=== PATIENT | male | born 1955 | race African-American/Black ===

== ENCOUNTER 2017-09-04 12:58 | Inpatient (IN) | payer SELFPAY ==
[2017-09-04] VITALS (9 sets, daily range): BP systolic 79–112; BP diastolic 50–72; PULSE 66–74; RESP 10–22; TEMP 96.1–98.5; O2SAT 95–97
[~2017-09-04] VITALS: Ht 180.3 cm; Wt 61.0 kg
[~2017-09-04 12:58] MED LIST: DICY1TAB26 PO; ECOT81TA2 PO; LISI20 PO; PROT40TA PO; ZYPR20TA PO
[2017-09-04] MEDS ORDERED: SODIUM CHLOR 0.9% 1000 ML INJ 1,000 ML IV SCH (13:22)
[2017-09-04] MEDS ORDERED: SODIUM CHLORIDE 0.9% FLUSH 10 ML FLUSH IVF PRN ×2 (13:30→14:15)
[2017-09-04] MEDS ORDERED: MIRT30TA PO (13:48)
[2017-09-04] MEDS ORDERED: OLAN20TA PO (13:48)
[2017-09-04] MEDS ORDERED: ATEN25TA PO (13:48)
[2017-09-04] MEDS ORDERED: NAPR500T PO (13:48)
[2017-09-04] MEDS ORDERED: BUSP10TA PO (13:48)
[2017-09-04] MEDS ORDERED: DIVA500T PO (13:48)
[2017-09-04] MEDS ORDERED: ASPI81CH CHEW (13:48)
[2017-09-04] MEDS ORDERED: LISI40TA PO (13:48)
[2017-09-04] MEDS ORDERED: HYDR50CA PO (13:48)
--- NOTE | 2017-09-04 13:59 | PD ---
HPI Chief Complaint: GI Complaint Time Seen by Provider: 13:22 Travel History International Travel<30 days: No Contact w/Intl Traveler<30days: No Traveled to known affect area: No History of Present Illness HPI This is a 61-year-old gentleman with a history of pancreatitis, who presents today with complaints of nausea vomiting and weakness. Patient was noted to have a blood pressure of systolic 70s in the triage area. The patient reports epigastric pain. He reports black fluid in his vomit as well as black tarry stools. He denies any fevers, chills. He denies any previous history of GI bleed. PFSH Past Medical History Bipolar Disorder: Yes Anxiety: Yes Depression: Yes Heart Rhythm Problems: Yes Cancer: Yes (Pt family states he may have prostate cancer but are unsure due to refusal) Cardiovascular Problems: Yes High Cholesterol: Yes Chest Pain: Yes Cerebrovascular Accident: Yes Diabetes: No Diminished Hearing: No Endocrine: No Gastrointestinal Disorders: No Genitourinary: No Headaches: No Hypertension: Yes Immune Disorder: No Musculoskeletal: Yes Neurologic: Yes Psychiatric: Yes (Extensive history of inpatient and outpatient psychiatric care) Reproductive: No Respiratory: Yes Immunizations Current: No Migraines: No Schizophrenia: Yes Seizures: No Thyroid Disease: No Influenza Vaccination: No Past Surgical History Surgical History: No Previous Surgery Social History Alcohol Use: No Tobacco Use: Yes (1) Substance Use: No (pt states no but smells of marijuana) Allergies-Medications (Allergen,Severity, Reaction): Coded Allergies: No Known Allergies (Verified , 09/04/17) Reported Meds & Prescriptions Reported Meds & Active Scripts Active Reported Mirtazapine 30 Mg Tab 30 Mg PO HS Olanzapine 20 Mg Tab 20 Mg PO HS Hydroxyzine Pamoate 50 Mg Cap 50 Mg PO TID Buspirone (Buspirone HCl) 10 Mg Tab 10 Mg PO TID Divalproex DR (Divalproex Sodium) 500 Mg Tabdr 500 Mg PO BID Naproxen 500 Mg Tab 500 Mg PO BID Lisinopril 40 Mg Tab 40 Mg PO DAILY Atenolol 25 Mg Tab 25 Mg PO DAILY Aspirin 81 Mg Chew 81 Mg CHEW DAILY Review of Systems Except as stated in HPI: all other systems reviewed are Neg General / Constitutional: No: Fever, Chills HENT: Positive: Lightheadedness, No: Headaches Cardiovascular: No: Chest Pain or Discomfort, Palpitations, Irregular Rhythm Respiratory: Positive: Shortness of Breath (on exertion), No: Cough Gastrointestinal: Positive: Abdominal Pain (be gastric), Changes in Bowel Habits (lack tarry stools), No: Nausea, Vomiting Genitourinary: Positive: Hematuria, No: Decreased Urinary Output Musculoskeletal: No: Weakness, Pain Neurologic: Positive: Weakness, Dizziness, No: Headache, Change in Mentation Psychiatric: No: Anxiety, Depression Physical Exam Narrative GENERAL: Well-developed well-nourished male in no acute respiratory distress. SKIN: Focused skin assessment warm/dry. HEAD: Atraumatic. Normocephalic. EYES: No scleral icterus. No injection or drainage. Pale conjunctiva ENT: No nasal bleeding or discharge. Mucous membranes slightly pale and moist. NECK: Trachea midline. No JVD. Supple. CARDIOVASCULAR: Regular rate and rhythm. No murmur appreciated. RESPIRATORY: No accessory muscle use. Clear to auscultation. Breath sounds equal bilaterally. GASTROINTESTINAL: Abdomen soft, nondistended. He has epigastric discomfort to palpation. No rebound or guarding. MUSCULOSKELETAL: No obvious deformities. No clubbing. No cyanosis. No edema. NEUROLOGICAL: Awake and alert. No obvious cranial nerve deficits. Motor grossly within normal limits. Normal speech. Data Data Last Documented VS Vital Signs Date Time Temp Pulse Resp B/P (MAP) Pulse Ox O2 Delivery O2 Flow Rate FiO2 09/04/17 15:06 66 95/64 (74) 09/04/17 14:18 12 Room Air 09/04/17 13:31 96 09/04/17 13:01 97.8 Orders Orders Complete Blood Count With Diff (09/04/17 13:22) Comprehensive Metabolic Panel (09/04/17 13:22) Lipase (09/04/17 13:22) Prothrombin Time / Inr (Pt) (09/04/17 13:22) Act Partial Throm Time (Ptt) (09/04/17 13:22) Urinalysis - C+S If Indicated (09/04/17 13:22) Type And Screen (09/04/17 13:22) Chest, Single Ap (09/04/17 13:22) Ecg Monitoring (09/04/17 13:22) Iv Access Insert/Monitor (09/04/17 13:22) Oximetry (09/04/17 13:22) Sodium Chlor 0.9% 1000 Ml Inj (Ns 1000 M (09/04/17 13:22) Sodium Chloride 0.9% Flush (Ns Flush) (09/04/17 13:30) Sodium Chloride 0.9% Flush (Ns Flush) (09/04/17 14:15) Sodium Chloride 0.9... W/Pantoprazole In (09/04/17 14:10) Sodium Chloride 0.9... W/Pantoprazole In (09/04/17 14:10) Sodium Chlor 0.9% 1000 Ml Inj (Ns 1000 M (09/04/17 14:45) Admit To Inpatient (09/04/17 ) Vital Signs (Adult) Q4H (09/04/17 15:01) Activity Bed Rest (09/04/17 15:01) Diet Npo (09/04/17 Dinner) Inpatient Certification (09/04/17 ) Admit Order (Ed Use Only) (09/04/17 15:16) Labs Laboratory Tests Test 09/04/17 13:35 White Blood Count 15.3 TH/MM3 Red Blood Count 4.72 MIL/MM3 Hemoglobin 12.9 GM/DL Hematocrit 38.1 % Mean Corpuscular Volume 80.7 FL Mean Corpuscular Hemoglobin 27.5 PG Mean Corpuscular Hemoglobin Concent 34.0 % Red Cell Distribution Width 14.1 % Platelet Count 402 TH/MM3 Mean Platelet Volume 8.9 FL Neutrophils (%) (Auto) 63.1 % Lymphocytes (%) (Auto) 25.8 % Monocytes (%) (Auto) 9.4 % Eosinophils (%) (Auto) 1.1 % Basophils (%) (Auto) 0.6 % Neutrophils # (Auto) 9.7 TH/MM3 Lymphocytes # (Auto) 3.9 TH/MM3 Monocytes # (Auto) 1.4 TH/MM3 Eosinophils # (Auto) 0.2 TH/MM3 Basophils # (Auto) 0.1 TH/MM3 CBC Comment AUTO DIFF Differential Comment AUTO DIFF CONFIRMED Prothrombin Time 11.9 SEC Prothromb Time International Ratio 1.1 RATIO Activated Partial Thromboplast Time 30.9 SEC Blood Urea Nitrogen 92 MG/DL Creatinine 3.35 MG/DL Random Glucose 118 MG/DL Total Protein 8.3 GM/DL Albumin 2.6 GM/DL Calcium Level 9.6 MG/DL Alkaline Phosphatase 86 U/L Aspartate Amino Transf (AST/SGOT) 12 U/L Alanine Aminotransferase (ALT/SGPT) 12 U/L Total Bilirubin 0.6 MG/DL Sodium Level 129 MEQ/L Potassium Level 3.1 MEQ/L Chloride Level 87 MEQ/L Carbon Dioxide Level 29.3 MEQ/L Anion Gap 13 MEQ/L Estimat Glomerular Filtration Rate 23 ML/MIN Lipase 100 U/L MDM Medical Decision Making Medical Screen Exam Complete: Yes Emergency Medical Condition: Yes Interpretation(s) Laboratory Tests Test 09/04/17 13:35 White Blood Count 15.3 TH/MM3 (4.0-11.0) Red Blood Count 4.72 MIL/MM3 (4.50-5.90) Hemoglobin 12.9 GM/DL (13.0-17.0) Hematocrit 38.1 % (39.0-51.0) Mean Corpuscular Volume 80.7 FL (80.0-100.0) Mean Corpuscular Hemoglobin 27.5 PG (27.0-34.0) Mean Corpuscular Hemoglobin Concent 34.0 % (32.0-36.0) Red Cell Distribution Width 14.1 % (11.6-17.2) Platelet Count 402 TH/MM3 (150-450) Mean Platelet Volume 8.9 FL (7.0-11.0) Neutrophils (%) (Auto) 63.1 % (16.0-70.0) Lymphocytes (%) (Auto) 25.8 % (9.0-44.0) Monocytes (%) (Auto) 9.4 % (0.0-8.0) Eosinophils (%) (Auto) 1.1 % (0.0-4.0) Basophils (%) (Auto) 0.6 % (0.0-2.0) Neutrophils # (Auto) 9.7 TH/MM3 (1.8-7.7) Lymphocytes # (Auto) 3.9 TH/MM3 (1.0-4.8) Monocytes # (Auto) 1.4 TH/MM3 (0-0.9) Eosinophils # (Auto) 0.2 TH/MM3 (0-0.4) Basophils # (Auto) 0.1 TH/MM3 (0-0.2) CBC Comment AUTO DIFF Prothrombin Time 11.9 SEC (9.8-11.6) Prothromb Time International Ratio 1.1 RATIO Activated Partial Thromboplast Time 30.9 SEC (24.3-30.1) Blood Urea Nitrogen 92 MG/DL (7-18) Creatinine 3.35 MG/DL (0.60-1.30) Random Glucose 118 MG/DL (74-106) Total Protein 8.3 GM/DL (6.4-8.2) Albumin 2.6 GM/DL (3.4-5.0) Calcium Level 9.6 MG/DL (8.5-10.1) Alkaline Phosphatase 86 U/L (45-117) Aspartate Amino Transf (AST/SGOT) 12 U/L (15-37) Alanine Aminotransferase (ALT/SGPT) 12 U/L (12-78) Total Bilirubin 0.6 MG/DL (0.2-1.0) Sodium Level 129 MEQ/L (136-145) Potassium Level 3.1 MEQ/L (3.5-5.1) Chloride Level 87 MEQ/L (98-107) Carbon Dioxide Level 29.3 MEQ/L (21.0-32.0) Anion Gap 13 MEQ/L (5-15) Estimat Glomerular Filtration Rate 23 ML/MIN (>89) Lipase 100 U/L (73-393) Differential Diagnosis Dehydration versus anemia versus metabolic arrangement versus pancreatitis Narrative Course This is a 61-year-old gentleman with a history of pancreatitis, presents today with complaints of weakness, nausea vomiting diarrhea with black tarry stool. Patient also reports epigastric discomfort. The patient has no previous history of GI bleed. The patient's BUN and creatinine are extremely elevated. Looking back to 2016, his BUN and creatinine time were within normal range. He' s been given 2 L of IV fluid. His systolic blood pressure has risen above 90.. He is not in any acute respiratory distress at this point. Rectal examination reveals heme positive stool. He is been started on Protonix drip. We will admit the patient to the medical service service. There is a call out to the admitting team for admission. Diagnosis Primary Impression: GI bleed Additional Impressions: Severe dehydration Hyponatremia Hypokalemia Acute kidney failure Admitting Information Admitting Physician Requests: Admit Jaiden Kwok MD Sep 04, 2017 13:59
[2017-09-04] MEDS ORDERED: PANTOPRAZOLE INJ 80 MG in SODIUM CHLORIDE 0.9% INJ 35 ML IV ONE (14:10)
[2017-09-04 14:20] LABS: AUTOMATED NEUTROPHIL # 9.7 TH/MM3 (1.8-7.7); BASOPHIL # 0.1 TH/MM3 (0-0.2); BASOPHIL % 0.6 % (0.0-2.0); EOSINOPHIL # 0.2 TH/MM3 (0-0.4); EOSINOPHIL % 1.1 % (0.0-4.0); HEMATOCRIT 38.1 % (39.0-51.0); LYMPH % 25.8 % (9.0-44.0); LYMPHOCYTE # 3.9 TH/MM3 (1.0-4.8); MEAN CELL VOLUME 80.7 FL (80.0-100.0); MEAN CORPUSCULAR HEMOGLOBIN 27.5 PG (27.0-34.0); MONO % 9.4 % (0.0-8.0); NEUT % 63.1 % (16.0-70.0); PLATELET COUNT 402 TH/MM3 (150-450); RED BLOOD COUNT 4.72 MIL/MM3 (4.50-5.90); RED CELL DISTRIBUTION WIDTH 14.1 % (11.6-17.2); WHITE BLOOD COUNT 15.3 TH/MM3 (4.0-11.0)
[2017-09-04 14:21] LABS: HEMO FLAGS AUTO DIFF
[2017-09-04 14:28] LABS: APTT (PATIENT) 30.9 SEC (24.3-30.1); INTERNATIONAL NORMALIZED RATIO 1.1 RATIO; PROTHROMBIN TIME - PATIENT 11.9 SEC (9.8-11.6)
[2017-09-04 14:31] LABS: ANION GAP 13 MEQ/L (5-15); AST (GOT) 12 U/L (15-37); BICARBONATE 29.3 MEQ/L (21.0-32.0); BLOOD UREA NITROGEN 92 MG/DL (7-18); CHLORIDE 87 MEQ/L (98-107); GLOMERULAR FILTRATION RATE 23 ML/MIN (>89); POTASSIUM 3.1 MEQ/L (3.5-5.1); SODIUM (NA) 129 MEQ/L (136-145)
[2017-09-04 14:32] LABS: ALT (GPT) 12 U/L (12-78)
[2017-09-04 14:34] LABS: ALKALINE PHOSPHATASE 86 U/L (45-117); TOTAL BILIRUBIN ADULT 0.6 MG/DL (0.2-1.0)
[2017-09-04] MEDS ORDERED: SODIUM CHLOR 0.9% 1000 ML INJ 1,000 ML IV ONE (14:45)
[2017-09-04 14:52] LABS: SCAN/DIFF AUTO DIFF CONFIRMED
[2017-09-04] MEDS: PANTOPRAZOLE INJ 80 MG in SODIUM CHLORIDE 0.9% INJ 100 ML IV SCH (14:55)
--- NOTE | 2017-09-04 15:09 | RADRPT ---
EXAM DATE/TIME: 09/04/2017 13:46 [place] COMPARISON: No previous studies available for comparison. INDICATIONS : Nausea, vomiting x1 week. MEDICAL HISTORY : None. SURGICAL HISTORY : None. ENCOUNTER: Initial ACUITY: 1 week PAIN SCORE: 0/10 LOCATION: Bilateral chest FINDINGS: A single view of the chest demonstrates the lungs to be symmetrically aerated without evidence of mas s, infiltrate or effusion. The cardiomediastinal contours are unremarkable. Osseous structures are intact. CONCLUSION: 1. No acute cardiopulmonary disease. Clay Bagley MD on September 04, 2017 at 15:07 Board Certified Radiologist. This report was verified electronically.
--- NOTE | 2017-09-04 16:42 | HHI.HP ---
HPI Service Family Medicine Primary Care Physician No Primary Care Physician Admission Diagnosis Gi Bleed, hyponatremia, hypokalemia, acute kidney failure Diagnoses: International Travel<30 Days: No Contact w/Intl Traveler<30days: No Known Affected Area: No History of Present Illness 61 y/o M w/hx of pancreatitis sent here from [facility] for melena. 1 week ago, felt he started to develop a stomach bug. Abdominal pain in periumbilical region. Vomiting food and drink, has been able to use bathroom. Hard stools 3days. Very dark. No blood. Vomited earlier today, vomit looks like food. No hemoptysis. Feeling lightheadedness, dizziness (like he is spinning), off balance. No heart palpitations. Has an appetite. 3 or 4 months ago, was hospitalized for pancreatitis. This pain feels different, only lasting 3 days. No recent travel. Last meal was a can of sardines from the [employer] store. No canned food or poorly cooked meals. Because of dizziness and weakness, decided to come to hospital. Disabled for 30 years. Lives at assisted living at [facility]. (Bettye Garcia MD R1) Review of Systems Constitutional: COMPLAINS OF: Weight loss (From lack of eating), DENIES: Fever Endocrine: DENIES: Heat/cold intolerance, Polyuria Eyes: DENIES: Eye pain, Vision loss Ears, nose, mouth, throat: DENIES: Hearing loss, Throat pain Respiratory: DENIES: Cough, Shortness of breath Gastrointestinal: DENIES: Abdominal pain, Constipation Genitourinary: DENIES: Urinary frequency (Less urination), Urgency Musculoskeletal: DENIES: Joint pain, Joint Swelling Neurologic: DENIES: Headache, Paresthesias (Bettye Garcia MD R1) Past Family Social History Past Medical History Bipolar disorder schizophrenia HTN anxiety Stroke hx Past Surgical History None (Bettye Garcia MD R1) Allergies: Coded Allergies: No Known Allergies (Verified , 09/04/17) Family History Mom: age 80; DM2, HTN, HLD, COPD, ESRD 3 Dad: age 36; accident injury Social History Tobacco use 42 pack years No ETOH No other drug use (Bettye Garcia MD R1) Physical Exam Vital Signs Vital Signs Date Time Temp Pulse Resp B/P (MAP) Pulse Ox O2 Delivery O2 Flow Rate FiO2 09/04/17 16:20 71 10 107/63 (78) 96 Room Air 09/04/17 15:06 66 95/64 (74) 09/04/17 14:45 94/60 (71) 09/04/17 14:18 68 12 89/56 (67) Room Air 09/04/17 13:31 68 17 88/55 (66) 96 Room Air 09/04/17 13:30 Room Air 09/04/17 13:13 79/50 (60) 09/04/17 13:01 97.8 74 14 82/59 (67) 96 Physical Exam GENERAL: no apparent distress, cachectic appearing male. SKIN: Cool and dry. HEAD: Atraumatic. Normocephalic. No temporal or scalp tenderness. EYES: Extraocular motions intact. No scleral icterus. ENT: Within of the oropharynx. Uvula midline. Airway patent. NECK: Trachea midline. No JVD or lymphadenopathy. CARDIOVASCULAR: Regular rate and rhythm without murmurs, gallops, or rubs. RESPIRATORY: Clear to auscultation. Breath sounds equal bilaterally. GASTROINTESTINAL: Abdomen soft. Periumbilical tenderness, moderate guarding to palpation. MUSCULOSKELETAL: Extremities without clubbing, cyanosis, or edema. NEUROLOGICAL: Awake and alert. Motor and sensory grossly within normal limits. Normal speech. Laboratory Laboratory Tests Test 09/04/17 13:35 White Blood Count 15.3 Red Blood Count 4.72 Hemoglobin 12.9 Hematocrit 38.1 Mean Corpuscular Volume 80.7 Mean Corpuscular Hemoglobin 27.5 Mean Corpuscular Hemoglobin Concent 34.0 Red Cell Distribution Width 14.1 Platelet Count 402 Mean Platelet Volume 8.9 Neutrophils (%) (Auto) 63.1 Lymphocytes (%) (Auto) 25.8 Monocytes (%) (Auto) 9.4 Eosinophils (%) (Auto) 1.1 Basophils (%) (Auto) 0.6 Neutrophils # (Auto) 9.7 Lymphocytes # (Auto) 3.9 Monocytes # (Auto) 1.4 Eosinophils # (Auto) 0.2 Basophils # (Auto) 0.1 CBC Comment AUTO DIFF Differential Comment AUTO DIFF CONFIRMED Prothrombin Time 11.9 Prothromb Time International Ratio 1.1 Activated Partial Thromboplast Time 30.9 Blood Urea Nitrogen 92 Creatinine 3.35 Random Glucose 118 Total Protein 8.3 Albumin 2.6 Calcium Level 9.6 Alkaline Phosphatase 86 Aspartate Amino Transf (AST/SGOT) 12 Alanine Aminotransferase (ALT/SGPT) 12 Total Bilirubin 0.6 Sodium Level 129 Potassium Level 3.1 Chloride Level 87 Carbon Dioxide Level 29.3 Anion Gap 13 Estimat Glomerular Filtration Rate 23 Lipase 100 (Abid,Bettye Dye MD R1) Result Diagram: 09/04/175 09/04/171334 Caprini VTE Risk Assessment Caprini VTE Risk Assessment: No/Low Risk (score <= 1) Caprini Risk Assessment Model Point Value = 1 Point Value = 2 Point Value = 3 Point Value = 5 Age 41-60 Minor surgery BMI > 25 kg/m2 Swollen legs Varicose veins or History of unexplained or recurrent spontaneous Oral contraceptives or hormone replacement Sepsis (< 1 month) Serious lung disease, including pneumonia (< 1 month) Abnormal pulmonary function Acute myocardial infarction Congestive heart failure (< 1 month) History of inflammatory bowel disease Medical patient at bed rest Age 61-74 Arthroscopic surgery Major open surgery (> 45 min) Laparoscopic surgery (> 45 min) Malignancy Confined to bed (> 72 hours) Immobilizing plaster cast Central venous access Age >= 75 History of VTE Family history of VTE Factor V Leiden Prothrombin [id number] Lupus anticoagulant Anticardiolipin antibodies Elevated serum homocysteine Heparin-induced thrombocytopenia Other congenital or acquired thrombophilia Stroke (< 1 month) Elective arthroplasty Hip, pelvis, or leg fracture Acute spinal cord injury (< 1 month) Prophylaxis Regimen Total Risk Factor Score Risk Level Prophylaxis Regimen 0-1 Low Early ambulation 2 Moderate Order ONE of the following: *Sequential Compression Device (SCD) *Heparin 5000 units SQ BID 3-4 Higher Order ONE of the following medications: *Heparin 5000 units SQ TID *Enoxaparin/Lovenox 40 mg SQ daily (WT < 150 kg, CrCl > 30 mL/min) *Enoxaparin/Lovenox 30 mg SQ daily (WT < 150 kg, CrCl > 10-29 mL/min) *Enoxaparin/Lovenox 30 mg SQ BID (WT < 150 kg, CrCl > 30 mL/min) AND/OR *Sequential Compression Device (SCD) 5 or more Highest Order ONE of the following medications: *Heparin 5000 units SQ TID (Preferred with Epidurals) *Enoxaparin/Lovenox 40 mg SQ daily (WT < 150 kg, CrCl > 30 mL/min) *Enoxaparin/Lovenox 30 mg SQ daily (WT < 150 kg, CrCl > 10-29 mL/min) *Enoxaparin/Lovenox 30 mg SQ BID (WT < 150 kg, CrCl > 30 mL/min) AND *Sequential Compression Device (SCD) (Bettye Garcia MD R1) Assessment and Plan Code Status Full (Bettye Garcia MD R1) Attending Attestation THIS CASE WAS DISCUSSED WITH THE RESIDENT PHYSICIANS. I HAVE REVIEWED THE RECORD AND AGREE WITH THE ABOVE NOTE AND PLAN OF CARE WAS DISCUSSED. I HAVE AUTHORIZED THE ORDER FOR ADMISSION TO AN IN-PATIENT STATUS. (Yoana Tran MD) Problem List: (1) GI bleed ICD Codes: K92.2 - Gastrointestinal hemorrhage, unspecified Status: Acute Plan: Likely secondary to upper peptic ulcer v gastritis. Rectal exam revealed heme positive stool. History of heavy NSAID use (500 mg twice a day). -Hemoglobin and repeat CBC 10.2 (12.9) -GI consulted -IV Protonix -Type and cross, transfusion as needed -IV fluids -Nothing by mouth after midnight -H&H every 6 hours, CMP in the a.m. (2) HTN (hypertension) ICD Codes: I10 - Essential (primary) hypertension Status: Acute Plan: -Patient takes lisinopril 40 mg by mouth daily and atenolol 25 mg by mouth daily -DC medications for now due to hypotension (3) Hypokalemia ICD Codes: E87.6 - Hypokalemia Status: Acute Plan: Potassium 3.1 on admission. Likely secondary to dehydration and poor nutrition. -Order Potassium chloride supplement 40 mg once -Provide IV fluids, nothing by mouth after midnight -CMP tomorrow a.m., will further supplement as needed (4) Acute kidney failure ICD Codes: N17.9 - Acute kidney failure, unspecified Status: Acute Plan: BUNs/creatinine of 92/3.35, GFR 23. Patient baseline uncertain. May be secondary to hypotension versus underlying chronic ESRD. -Provide IV fluids -Monitor Daily CMP's (5) Hyponatremia ICD Codes: E87.1 - Hypo-osmolality and hyponatremia Status: Acute Plan: Sodium level CXXIX on admission. -IV normal saline 100 MLS /hour (6) Severe dehydration ICD Codes: E86.0 - Dehydration Status: Acute Plan: See above plan (7) FEN Plan: Nutrition: NPO after midnight Electrolytes: K+ supplement GI prophy: Protonix DVT prophy: SCDs SW Dr. Cruz (Bettye Garcia MD R1) Physician Certification 2 Midnight Certification Type: Admission for Inpatient Services Order for Inpatient Services The services are ordered in accordance with Medicare regulations or non- Medicare payer requirements, as applicable. In the case of services not specified as inpatient-only, they are appropriately provided as inpatient services in accordance with the 2-midnight benchmark. Estimated LOS (days): 2 2 days is the estimated time the patient will need to remain in the hospital, assuming treatment plan goals are met and no additional complications. Post-Hospital Plan: Home (Bettye Garcia MD R1) 2 Midnight Certification Type: Admission for Inpatient Services Post-Hospital Plan: Home (Yoana Tran MD) Bettye Garcia MD R1 Sep 04, 2017 16:42 Yoana Tran MD Sep 05, 2017 13:30
[2017-09-04] MEDS: SODIUM CHLOR 0.9% 1000 ML INJ 1,000 ML IV SCH (17:00)
[2017-09-04 18:55] LABS: BLOOD, URINE NEG (NEG); COMMENT (UR) CULT NOT INDICATED; CULTURE IF INDICATED CULT NOT INDICATED; GLUCOSE,URINE NEG (NEG); HYALINE CAST, URINE 22 /lpf (RARE); KETONE, URINE TRACE mg/dL (NEG); NITRITE,URINE NEG (NEG); SQUAMOUS EPITHELIAL CELL URINE <1 /hpf (0-5); URINE COLOR YELLOW (YELLW/STRAW)
[2017-09-04 19:41] LABS: HEMATOCRIT 30.5 % (39.0-51.0); REVIEW FLAG FINAL
[2017-09-04] MEDS: MIRTAZAPINE 15 MG TAB PO SCH (20:00)
[2017-09-04] MEDS: DIVALPROEX DR 500 MG TABEC PO SCH (20:00)
[2017-09-04] MEDS: OLANZapine 10 MG TAB PO SCH (20:34)
[2017-09-04] MEDS ORDERED: NAPROXEN 500 MG TAB PO SCH (21:00)
[2017-09-04] MEDS ORDERED: POTASSIUM CHLORIDE 10 MEQ CONTROLLED RELEASE TAB PO ONE (21:45)
[2017-09-05] VITALS: BP 108/56; PULSE 72; RESP 20; TEMP 96.8; O2SAT 97
[2017-09-05] MEDS: PANTOPRAZOLE INJ 80 MG in SODIUM CHLORIDE 0.9% INJ 100 ML IV SCH ×2 (00:55→15:01)
[2017-09-05 02:24] LABS: HEMATOCRIT 28.6 % (39.0-51.0); REVIEW FLAG FINAL
[2017-09-05 02:46] LABS: ALKALINE PHOSPHATASE 66 U/L (45-117); ALT (GPT) 8 U/L (12-78); ANION GAP 8 MEQ/L (5-15); AST (GOT) 7 U/L (15-37); BICARBONATE 26.6 MEQ/L (21.0-32.0); BLOOD UREA NITROGEN 78 MG/DL (7-18); CHLORIDE 103 MEQ/L (98-107); GLOMERULAR FILTRATION RATE 43 ML/MIN (>89); POTASSIUM 3.6 MEQ/L (3.5-5.1); SODIUM (NA) 138 MEQ/L (136-145); TOTAL BILIRUBIN ADULT 0.5 MG/DL (0.2-1.0)
[2017-09-05] MEDS: SODIUM CHLOR 0.9% 1000 ML INJ 1,000 ML IV SCH ×3 (03:25→22:20)
--- NOTE | 2017-09-05 07:50 | PD.CONS ---
HPI History of Present Illness This is a 61 year old male who presented to the emergency room for evaluation of a one-week history of abdominal pain with associated nausea, vomiting, and melanotic stools. He reports that his symptoms began suddenly about a week ago. He complains of a burning in/dull ache in his epigastric and mid abdominal area that is intermittent without any radiation. This is aggravated by any by mouth intake and therefore he has not been eating much over the past week. He has lost about 10-15 pounds in 1 week. He denies any hematemesis and states his vomit consists of undigested food. He also reports that he has been having black tarry stools for the past 3-4 days. He denies any fevers, chills. He has had dizziness at times. He takes a baby aspirin and naproxen 500 mg by mouth daily. He has a history of alcohol abuse but does not currently drink any alcohol. He denies any history of peptic ulcer disease. He has never had an EGD or colonoscopy. There is no family history of esophageal, gastric, colorectal cancer. (Jesika De León) PFSH Past Medical History Hypertension Anxiety/Depression Schizophrenia Bipolar disorder Hyperlipidemia CVA Pancreatitis Hx ETOH abuse Past Surgical History Denies (Jesika De León) Coded Allergies: No Known Allergies (Verified , 09/04/17) Medications Allergies Coded Allergies Type Severity Reaction Last Updated Verified No Known Allergies 09/04/17 Yes Active Scripts Medications Dose Route/Sig Max Daily Dose Days Date Category Mirtazapine 30 Mg Tab 30 Mg PO HS 09/04/17 Reported Olanzapine 20 Mg Tab 20 Mg PO HS 09/04/17 Reported Buspirone (Buspirone HCl) 10 Mg Tab 10 Mg PO TID 09/04/[address] (Divalproex Sodium) 500 Mg Tabdr 500 Mg PO BID 09/04/17 Reported Naproxen 500 Mg Tab 500 Mg PO BID 09/04/17 Reported Aspirin 81 Mg Chew 81 Mg CHEW DAILY 09/04/17 Reported Family History Denies any family history of esophageal, gastric, colorectal cancer. Social History He smokes one pack of cigarettes per day 14-15 years History of alcohol abuse but does not currently drink No illicit drug use (Jesika De León) Review of Systems Constitutional: COMPLAINS OF: Fatigue, Weight loss, Dizziness, DENIES: Fever, Chills, Change in appetite Respiratory: DENIES: Cough Cardiovascular: DENIES: Chest pain Gastrointestinal: COMPLAINS OF: Abdominal pain, Black stools, Nausea, Vomiting , Heartburn, DENIES: Constipation, Diarrhea, Hematemesis Musculoskeletal: DENIES: Joint pain Neurologic: DENIES: Headache Psychiatric: DENIES: Anxiety (Jesika De León) GI Exam Vitals I&O Vital Signs Date Time Temp Pulse Resp B/P (MAP) Pulse Ox O2 Delivery O2 Flow Rate FiO2 09/05/17 00:00 96.8 72 20 108/56 (73) 97 09/04/17 20:00 98.5 74 22 96/58 (71) 95 09/04/17 18:10 09/04/17 18:00 96.1 71 16 112/72 (85) 97 09/04/17 16:20 71 10 107/63 (78) 96 Room Air 09/04/17 15:06 66 95/64 (74) 09/04/17 14:45 94/60 (71) 09/04/17 14:18 68 12 89/56 (67) Room Air 09/04/17 13:31 68 17 88/55 (66) 96 Room Air 09/04/17 13:30 Room Air 09/04/17 13:13 79/50 (60) 09/04/17 13:01 97.8 74 14 82/59 (67) 96 I/O 09/04/17 09/04/17 09/04/17 09/05/17 09/05/17 09/05/17 07:00 15:00 23:00 07:00 15:00 23:00 Intake Total 2035 ml 0 ml Output Total 150 ml Balance 2035 ml -150 ml Intake Oral 0 ml IV Total 2035 ml Output Urine Total 150 ml # Voids 1 # Bowel Movements 0 Imaging Last Impressions Chest X-Ray 09/04/17 1322 Signed Impressions: Service Date/Time: Monday, September 04, 2017 13:46 - CONCLUSION: 1. No acute cardiopulmonary disease. Clay Bagley MD Laboratory Test 09/04/17 13:35 09/04/17 18:06 09/04/17 19:21 09/05/17 02:13 White Blood Count 15.3 TH/MM3 Red Blood Count 4.72 MIL/MM3 Hemoglobin 12.9 GM/DL 10.2 GM/DL 9.8 GM/DL Hematocrit 38.1 % 30.5 % 28.6 % Mean Corpuscular Volume 80.7 FL Mean Corpuscular Hemoglobin 27.5 PG Mean Corpuscular Hemoglobin Concent 34.0 % Red Cell Distribution Width 14.1 % Platelet Count 402 TH/MM3 Mean Platelet Volume 8.9 FL Neutrophils (%) (Auto) 63.1 % Lymphocytes (%) (Auto) 25.8 % Monocytes (%) (Auto) 9.4 % Eosinophils (%) (Auto) 1.1 % Basophils (%) (Auto) 0.6 % Neutrophils # (Auto) 9.7 TH/MM3 Lymphocytes # (Auto) 3.9 TH/MM3 Monocytes # (Auto) 1.4 TH/MM3 Eosinophils # (Auto) 0.2 TH/MM3 Basophils # (Auto) 0.1 TH/MM3 CBC Comment AUTO DIFF Differential Comment AUTO DIFF CONFIRMED Prothrombin Time 11.9 SEC Prothromb Time International Ratio 1.1 RATIO Activated Partial Thromboplast Time 30.9 SEC Blood Urea Nitrogen 92 MG/DL 78 MG/DL Creatinine 3.35 MG/DL 1.95 MG/DL Random Glucose 118 MG/DL 91 MG/DL Total Protein 8.3 GM/DL 5.9 GM/DL Albumin 2.6 GM/DL 1.8 GM/DL Calcium Level 9.6 MG/DL 7.6 MG/DL Alkaline Phosphatase 86 U/L 66 U/L Aspartate Amino Transf (AST/SGOT) 12 U/L 7 U/L Alanine Aminotransferase (ALT/SGPT) 12 U/L 8 U/L Total Bilirubin 0.6 MG/DL 0.5 MG/DL Sodium Level 129 MEQ/L 138 MEQ/L Potassium Level 3.1 MEQ/L 3.6 MEQ/L Chloride Level 87 MEQ/L 103 MEQ/L Carbon Dioxide Level 29.3 MEQ/L 26.6 MEQ/L Anion Gap 13 MEQ/L 8 MEQ/L Estimat Glomerular Filtration Rate 23 ML/MIN 43 ML/MIN Lipase 100 U/L 79 U/L Urine Color YELLOW Urine Turbidity HAZY Urine pH 5.0 Urine Specific [place] 1.018 Urine Protein TRACE mg/dL Urine Glucose (UA) NEG mg/dL Urine Ketones TRACE mg/dL Urine Occult Blood NEG Urine Nitrite NEG Urine Bilirubin NEG Urine Urobilinogen 2.0 MG/DL Urine Leukocyte Esterase NEG Urine RBC 1 /hpf Urine WBC 2 /hpf Urine Squamous Epithelial Cells <1 /hpf Urine Hyaline Casts 22 /lpf Microscopic Urinalysis Comment CULT NOT INDICATED Physical Examination HEENT: Normocephalic; atraumatic; no jaundice. CHEST: CTA, Resp. even/unlabored CARDIAC: RRR. ABDOMEN: Soft, nondistended, mild epigastric tenderness; no hepatosplenomegaly ; bowel sounds are present in all four quadrants. EXTREMITIES: No clubbing, cyanosis, or edema. SKIN: Normal; no rash; no jaundice. MANAGER PRINTING: No focal deficits; alert and oriented times three. (Jesika De León) Assessment and Plan Plan ASSESSMENT: - Upper GIB, Melena, Hemoccult positive stools. Denies any history PUD. He takes Baby ASA and Naproxen 500mg po BID. He has a hx of ETOH abuse, but denies any current use. He reports that he has n/v with nonbloody emesis, epigastric, mid abdominal pain x 1 week and melanotic stool x 3-4 days. He had hemoccult positive stool on admission. H&H 12.9/38.1---> 9.8/28.6. Protonic drip. NPO. Will plan for EGD Today. - Abdominal pain with nausea and vomiting x 1 week. Burning/dull ache in epigastric/mid abdominal area. Nonbloody emesis. R/T food intake. Protonix. - Unintentional weight loss. Tender 15 pound weight loss in 1 week related to not being able to eat secondary to nausea and vomiting/abdominal pain - Anemia, acute blood loss. 9.8/28.6. Protonic gtt - Acute kidney injury, likely secondary to dehydration/acute blood loss. Creat 3.35----> 1.95. Hydration - Leukocytosis. WBC 15.3. Afebrile. - Electrolyte abnormalities with hyponatremia, hypokalemia. Improved. - Hypertension, anxiety, depression, schizophrenia, bipolar disorder, hyperlipidemia, history of CVA per attending PLAN: - Plan for EGD today - Obtain consent - Nothing by mouth - Protonix drip - Monitor H&H - Transfuse as necessary - CBC, BMP in a.m. - Notify GI of active bleeding - Patient seen and examined by Dr. Lopez and myself and this note is written on his behalf (Jesika De León) Physician Comments Patient seen and examined Agree with above Continue with current supportive care Monitor labs We will proceed with EGD Further recommendations shall depend on the findings of EGD and hospital course (Richard Lopez MD) Jesika De León Sep 05, 2017 07:50 Richard Lopez MD Sep 05, 2017 10:37
[2017-09-05 08:00] VITALS: BP 101/63; PULSE 68; RESP 16; TEMP 97.3; O2SAT 95
[2017-09-05] MEDS ORDERED: ATENOLOL 25 MG TAB PO SCH (09:00)
[2017-09-05] MEDS ORDERED: LISINOPRIL 20 MG TAB PO SCH (09:00)
[2017-09-05] MEDS: DIVALPROEX DR 500 MG TABEC PO SCH ×2 (09:49→22:21)
--- NOTE | 2017-09-05 11:35 | RADRPT ---
EXAM DATE/TIME: 09/05/2017 10:21 [facility] COMPARISON: No previous studies available for comparison. INDICATIONS : Increased BUN/creatinine. MEDICAL HISTORY : Hypercholesterolemia. Carcinoma, prostate. CVA. Chest pain. Irregular heartbeat. HTN. Abdominal amy n. Bipolar disorder. Schizophrenia. Depression. SURGICAL HISTORY : None. ENCOUNTER: Initial ACUITY: 1 day PAIN SCORE: 0/10 LOCATION: Bilateral flank MEASUREMENTS: RIGHT KIDNEY: 11.3 x 5.6 x 5.5 cm LEFT KIDNEY: 11.5 x 5.9 x 6.0 cm FINDINGS: Kidneys are mildly echogenic. No hydronephrosis or mass. Urinary bladder unremarkable. No perinephric fluid collections. CONCLUSION: 1. Echogenic kidneys which can be seen with medical renal disease. Dylon Jeffery MD on September 05, 2017 at 11:25 Board Certified Radiologist. This report was verified electronically.
[2017-09-05] MEDS ORDERED: PROPOFOL 200 MG/20 ML AMP IV ONE (12:00)
[2017-09-05] MEDS ORDERED: PHENYLEPH/NS 1000 MCG/10 ML SYR IV ONE (12:00)
[2017-09-05] MEDS ORDERED: ePHEDrine/NS 25 MG/5 ML SYR IV ONE (12:00)
[2017-09-05] MEDS ORDERED: LIDOCAINE HCL 1% PF 5 ML AMPULE OTHER ONE (12:00)
[2017-09-05] MEDS ORDERED: DO NOT ADM ANY ANTICOAGULANT DRUGS PRN (12:42)
--- NOTE | 2017-09-05 12:46 | PD.PROCEDR ---
GI Procedure REFERRING PHYSICIAN Dr. Adkins PROCEDURE PERFORMED EGD with clip placement, cautery, epinephrine injection INDICATION FOR PROCEDURE Anemia, GI bleed PROCEDURE: The procedure, risks and benefits were discussed with Mr. Urias and informed consent was obtained. Anesthesia sedated him with Diprivan. He was placed in the left lateral decubitus position. EGD: The Pentax videoscope was introduced through the oropharynx and advanced to the second portion of the duodenum under direct visualization. Retroflexion was performed in the stomach. FINDINGS: Esophagus this was normal The stomach there was antral punctate and patchy erythema with superficial erosions no blood or bleeding the rest of the stomach was unremarkable The duodenum there was a large duodenal bulb ulcer with 2 visible vessels we applied a clip to one of the vessels and injected with epinephrine with regards to the other vessel epinephrine was injected and the vessel was cauterized the rest of the duodenum was unremarkable ESTIMATED BLOOD LOSS: None SPECIMENS REMOVED: None COMPLICATIONS: None IMPRESSION: Erosive gastritis Duodenal bulb ulcer PLAN: Continue with current supportive care Monitor labs and transfuse as needed Continue with IV PPI Avoid NSAIDs and aspirin and anticoagulation If any active bleeding patient to be referred to our IR for embolization EGD in 2 months Richard Lopez MD Sep 05, 2017 12:46
[2017-09-05] MEDS ORDERED: EPINEPHrine HCL (1:10,000) 1 MG/10 ML SYRINGE OTHER ONE (14:00)
--- NOTE | 2017-09-05 15:21 | HHI.FPPN ---
Problem Problem List: (1) GI bleed (2) Severe dehydration (3) HTN (hypertension) (4) Hyponatremia (5) Acute kidney failure (6) Hypokalemia Subjective Subjective 61 y/o M with h/o scizophrenia/biploar who resides in [facility] was sent for possible GI bleed. He states for the past week has had pain int he periumbilical area, emesis of food and drink and constipation (hard stools). Sates the stools were very dark but no blood. Denies blood in the emesis. On admission he was lightheaded and dizzy. He states he has not been eating or drinking much in the past week due to his symptoms. On admission patient was found to be sever dehydrated with hypotension and CHARLEE - - his labs and vitals have improved with aggressive rehydration. He was seen by GI and EGD was performed showing gastritis and a large bleeding duodenal bulb ulcer that was clipped and EPI was injected. Review of Systems negative except as above Past Family Social History Past Medical History Bipolar disorder schizophrenia HTN anxiety Stroke hx pancreatitis Past Surgical History None Allergies: Coded Allergies: No Known Allergies (Verified , 09/04/17) Family History Mom: age 80; DM2, HTN, HLD, COPD, ESRD 3 Dad: age 36; accident injury Social History Tobacco use 42 pack years, ETOH or drugs lives in [facility] -- they manage his medications for him [facility] Objective Objective Laboratory Tests - Abnormals Test 09/04/17 18:06 09/04/17 19:21 09/05/17 02:13 Urine Turbidity HAZY Urine Ketones TRACE mg/dL Hemoglobin 10.2 GM/DL 9.8 GM/DL Hematocrit 30.5 % 28.6 % Blood Urea Nitrogen 78 MG/DL Creatinine 1.95 MG/DL Total Protein 5.9 GM/DL Albumin 1.8 GM/DL Calcium Level 7.6 MG/DL Aspartate Amino Transf (AST/SGOT) 7 U/L Alanine Aminotransferase (ALT/SGPT) 8 U/L Estimat Glomerular Filtration Rate 43 ML/MIN Vital Signs 09/04/17 09/04/17 09/04/17 09/04/17 16:20 18:00 18:10 20:00 Temp 96.1 98.5 Pulse 71 71 74 Resp 10 16 22 B/P (MAP) 107/63 (78) 112/72 (85) 96/58 (71) Pulse Ox 96 97 95 O2 Delivery Room Air 09/05/17 09/05/17 09/05/17 09/05/17 00:00 08:00 10:23 12:42 Temp 96.8 97.3 98.2 Pulse 72 68 74 Resp 20 16 18 B/P (MAP) 108/56 (73) 101/63 (76) 86/51 (63) Pulse Ox 97 95 94 O2 Delivery Nasal Cannula O2 Flow Rate 4 INTAKE & OUTPUT 09/06/17 07:00 Intake Total 400 ml Balance 400 ml Physical exam O. CONSTITUTIONAL/GEN: normally nourished, in NAD. EYES: conjunctiva normal, PERRLA, EOMI. ENT: Mouth and pharynx normal. NECK: thyroid midline, carotids symmetrical. LUNGS: clear A-P, respiratory effort is normal. CARDIOVASCULAR: RR without murmur or gallop. No significant edema. GI/ABD: soft without masses, without organomegaly- somewhat tender in the epigastrium : no CVA tenderness NEURO: No focal deficits. Gait is normal SKIN: color normal, no rashes noted. HEME/LYMPH: no bruising, petechia or significant adenopathy MUSC: back is normal in appearance. Extremities are normal in appearance. PSYCH/MENTAL STATUS: Alert and oriented x 3. Assessment Assessment: (1) GI bleed (2) Severe dehydration (3) HTN (hypertension) (4) Acute kidney failure (5) Hyponatremia (6) Hypokalemia Assessment 61 year old male with Upper GI bleed from duodenal bulb ulcer that is sp clipping of this is doing well with rehydration. 1. GI bleed -- will fu on H/H to make sure stable, cont IV PPI, monitor closely 2. Dehydration -- cont IVF and monitor vitals (will continue to hold his Antihypertensives until they are needed) Urine output was a little low -- bilateral renal us just shows medical renal disease. Expect this will improve with adequate hydration Maintain normal electrolyte balance. 3. Pysch -- stable -- continue home meds PLAN PLAN Patient was seen and dw the resident team -- Dr. Cruz, Dr. Garcia and Dr. Emre Tran,Yoana Conde MD Sep 05, 2017 15:21
[2017-09-05 16:00] VITALS: BP 144/73; PULSE 73; RESP 17; TEMP 98; O2SAT 96
[2017-09-05 17:27] LABS: HEMATOCRIT 29.9 % (39.0-51.0)
[2017-09-05 18:09] VITALS: O2SAT 94
[2017-09-05 20:00] VITALS: BP 117/65; PULSE 85; RESP 16; TEMP 99.8; O2SAT 92
--- NOTE | 2017-09-05 21:28 | EKG ---
Date Performed: 09/05/2017 Time Performed: 10:54:52 PTAGE: 61 years EKG: Sinus rhythm NONSPECIFIC T-WAVE ABNORMALITY BORDERLINE ECG PREVIOUS TRACING : 03/14/2015 18.35 Compared to prior tracing no significant change DOCTOR: Curtis Sherman Interpretating Date/Time 09/05/2017 21:27:38
[2017-09-05] MEDS: MIRTAZAPINE 15 MG TAB PO SCH (22:22)
[2017-09-05] MEDS: OLANZapine 10 MG TAB PO SCH (22:23)
[2017-09-06] VITALS: BP 131/77; PULSE 80; RESP 16; TEMP 100.5; O2SAT 93
[2017-09-06 03:02] VITALS: BP 138/72; PULSE 83; RESP 18; TEMP 98.1; O2SAT 91
[2017-09-06] MEDS: PANTOPRAZOLE INJ 80 MG in SODIUM CHLORIDE 0.9% INJ 100 ML IV SCH ×3 (03:09→14:50)
[2017-09-06 06:36] LABS: AUTOMATED NEUTROPHIL # 7.9 TH/MM3 (1.8-7.7); BASOPHIL # 0.1 TH/MM3 (0-0.2); BASOPHIL % 0.6 % (0.0-2.0); EOSINOPHIL # 0.1 TH/MM3 (0-0.4); EOSINOPHIL % 0.8 % (0.0-4.0); HEMATOCRIT 26.4 % (39.0-51.0); HEMO FLAGS DIFF FINAL; LYMPH % 23.7 % (9.0-44.0); LYMPHOCYTE # 2.9 TH/MM3 (1.0-4.8); MEAN CELL VOLUME 79.4 FL (80.0-100.0); MEAN CORPUSCULAR HEMOGLOBIN 26.7 PG (27.0-34.0); MEAN CORPUSCULAR HGB CONC 33.6 % (32.0-36.0); NEUT % 63.9 % (16.0-70.0); PLATELET COUNT 331 TH/MM3 (150-450); RED BLOOD COUNT 3.33 MIL/MM3 (4.50-5.90); RED CELL DISTRIBUTION WIDTH 14.1 % (11.6-17.2); WHITE BLOOD COUNT 12.4 TH/MM3 (4.0-11.0)
[2017-09-06 07:13] LABS: ALKALINE PHOSPHATASE 63 U/L (45-117); ALT (GPT) 12 U/L (12-78); ANION GAP 7 MEQ/L (5-15); AST (GOT) 16 U/L (15-37); BICARBONATE 27.4 MEQ/L (21.0-32.0); BLOOD UREA NITROGEN 31 MG/DL (7-18); CHLORIDE 109 MEQ/L (98-107); GLOMERULAR FILTRATION RATE 92 ML/MIN (>89); POTASSIUM 3.4 MEQ/L (3.5-5.1); SODIUM (NA) 143 MEQ/L (136-145); TOTAL BILIRUBIN ADULT 0.4 MG/DL (0.2-1.0)
[2017-09-06 08:00] VITALS: BP 144/73; PULSE 75; RESP 17; TEMP 98.5; O2SAT 96
[2017-09-06] MEDS: DIVALPROEX DR 500 MG TABEC PO SCH ×2 (10:17→20:56)
[2017-09-06] MEDS: SODIUM CHLOR 0.9% 1000 ML INJ 1,000 ML IV SCH ×2 (10:18→18:44)
[2017-09-06 12:44] LABS: BLOOD, URINE MOD (NEG); COMMENT (UR) CULT NOT INDICATED; CULTURE IF INDICATED CULT NOT INDICATED; GLUCOSE,URINE 150 mg/dL (NEG); KETONE, URINE NEG (NEG); NITRITE,URINE NEG (NEG); SQUAMOUS EPITHELIAL CELL URINE 1 /hpf (0-5); URINE COLOR YELLOW (YELLW/STRAW)
--- NOTE | 2017-09-06 14:20 | HHI.FPPN ---
Subjective Remarks Patient was febrile at 12 AM on 09/06 with T 100.5. Patient endorses decreased appetite, upper abdominal pain, and continued dark/tarry stools. Endorses a productive cough (white sputum) and notices his right hand has become more swollen. Denies chest pain, shortness of breath, or diarrhea. (Bettye Garcia MD R1) Objective Vitals Vital Signs Date Time Temp Pulse Resp B/P (MAP) Pulse Ox O2 Delivery O2 Flow Rate FiO2 09/06/17 08:00 98.5 75 17 144/73 (96) 96 09/06/17 03:02 98.1 83 18 138/72 (94) 91 09/06/17 00:00 100.5 80 16 131/77 (95) 93 09/05/17 20:00 99.8 85 16 117/65 (82) 92 09/05/17 18:09 94 21 09/05/17 16:00 98.0 73 17 144/73 (96) 96 I/O 09/05/17 09/05/17 09/05/17 09/06/17 09/06/17 09/06/17 07:00 15:00 23:00 07:00 15:00 23:00 Intake Total 0 ml 400 ml 1000 ml 1660 ml 1000 ml Output Total 150 ml 2 ml Balance -150 ml 400 ml 998 ml 1660 ml 1000 ml Intake Oral 0 ml 0 ml 240 ml IV Total 1000 ml 1420 ml 1000 ml Other 400 ml Output Urine Total 150 ml 2 ml # Voids 1 # Bowel Movements 0 3 1 (Bettye Garcia MD R1) Result Diagram: 09/06/1755409/06/17554 Objective Remarks O. CONSTITUTIONAL/GEN: Very thin-appearing male upright in bed in no acute distress EYES: conjunctiva normal, PERRLA, EOMI. ENT: Mouth and pharynx normal. NECK: thyroid midline LUNGS: Rhonchi and crackles heard bilaterally on exam. CARDIOVASCULAR: RR without murmur or gallop. No significant edema. GI/ABD: soft without masses, without organomegaly- tender in the epigastrium NEURO: No focal deficits. SKIN: color normal, no rashes noted on the extremities or abdomen. MUSC: Extremities are normal in appearance. PSYCH/MENTAL STATUS: Alert and oriented x 3. (Bettye Garcia MD R1) A/P Assessment and Plan Patient is a 61-year-old male admitted for upper GI bleed secondary to duodenal bulb ulcer and erosive gastritis. Postop day #1 EGD with clip placement, cautery , epinephrine injection. Patient is possibly still bleeding: Continues to endorse black tarry stools, hemoglobin 8.9 today from yesterday's level of 10.0. Discharge Planning D/C when medically stable (Bettye Garcia MD R1) Attending Attestation Patient seen and examined. Case reviewed and discussed with the resident team. Agree with plan of care as discussed with me and documented in the resident note. (Yoana Tran MD) Problem List: (1) SIRS (systemic inflammatory response syndrome) ICD Codes: R65.10 - Systemic inflammatory response syndrome (SIRS) of non- infectious origin without acute organ dysfunction Status: Acute Plan: Fever 100.5 overnight, WBC count 12.4, no known source of infection. Patient complains of cough productive for white-katie sputum - CXR ordered -U/A : 150 of glucose, mod occult blood, high urobilinogen - blood cx - will monitor overnight (2) GI bleed ICD Codes: K92.2 - Gastrointestinal hemorrhage, unspecified Status: Acute Plan: Upper GI bleed secondary to duodenal ulcer and erosive gastritis. History of heavy NSAID use (500 mg twice a day). -Hemoglobin 8.9 (10) -IV Protonix -Type and cross, will monitor closely and provide transfusion as needed -IV fluids -H&H ordered for later today. Depending on hemoglobin levels, may consider contacting GI for repeat procedure/ligation (3) HTN (hypertension) ICD Codes: I10 - Essential (primary) hypertension Status: Acute Plan: Patient takes lisinopril 40 mg by mouth daily and atenolol 25 mg by mouth daily. CHARLEE on admission -Resume atenolol 25 mg by mouth for now (4) Hypokalemia ICD Codes: E87.6 - Hypokalemia Status: Acute Plan: Potassium 3.1 on admission. Likely secondary to dehydration and poor nutrition. -CMP tomorrow a.m., will further supplement as needed (5) Acute kidney failure ICD Codes: N17.9 - Acute kidney failure, unspecified Status: Acute Plan: Improved. BUN/Cr of 31/1.01 On Admission: BUNs/creatinine of 92/3.35, GFR 23. Patient baseline uncertain. Likely secondary to hypotension -Provide IV fluids -Monitor Daily CMP's (6) Severe dehydration ICD Codes: E86.0 - Dehydration Status: Acute Plan: See above plan (7) FEN Plan: Nutrition: NPO after midnight Electrolytes: K+ supplement GI prophy: Protonix DVT prophy: SCDs SW Dr. Cruz (Bettye Garcia MD R1) Bettye Garcia MD R1 Sep 06, 2017 14:20 Yoana Tran MD Sep 06, 2017 15:05
--- NOTE | 2017-09-06 15:39 | RADRPT ---
EXAM DATE/TIME: 09/06/2017 16:07 [facility] COMPARISON: CHEST SINGLE AP, September 04, 2017, 13:46. INDICATIONS : Short of breath. MEDICAL HISTORY : None. SURGICAL HISTORY : None. ENCOUNTER: Subsequent ACUITY: 2 days PAIN SCORE: 0/10 LOCATION: Bilateral chest FINDINGS: A single view of the chest demonstrates the lungs to be symmetrically aerated without evidence of mas s, infiltrate or effusion. The cardiomediastinal contours are unremarkable. Osseous structures are intact. CONCLUSION: No acute disease. No significant change has occurred. Kalin Morales MD on September 06, 2017 at 15:37 Board Certified Radiologist. This report was verified electronically.
[2017-09-06 16:00] VITALS: BP 153/87; PULSE 71; RESP 18; TEMP 99.5; O2SAT 97
[2017-09-06 16:57] LABS: AUTOMATED NEUTROPHIL # 7.9 TH/MM3 (1.8-7.7); BASOPHIL # 0.2 TH/MM3 (0-0.2); BASOPHIL % 1.3 % (0.0-2.0); EOSINOPHIL # 0.1 TH/MM3 (0-0.4); EOSINOPHIL % 0.7 % (0.0-4.0); HEMATOCRIT 28.2 % (39.0-51.0); LYMPH % 24.5 % (9.0-44.0); MEAN CELL VOLUME 80.5 FL (80.0-100.0); MEAN CORPUSCULAR HGB CONC 33.5 % (32.0-36.0); MONO % 9.1 % (0.0-8.0); NEUT % 64.4 % (16.0-70.0); PLATELET COUNT 359 TH/MM3 (150-450); RED BLOOD COUNT 3.51 MIL/MM3 (4.50-5.90); WHITE BLOOD COUNT 12.3 TH/MM3 (4.0-11.0)
[2017-09-06 17:08] LABS: HEMO FLAGS AUTO DIFF
[2017-09-06 17:46] VITALS: O2SAT 97
[2017-09-06 17:51] LABS: SCAN/DIFF AUTO DIFF CONFIRMED
[2017-09-06 17:52] LABS: PLATELET ESTIMATE SMEAR NORMAL (NORMAL); PLATELET MORPHOLOGY NORMAL (NORMAL); TARGET CELLS 2+ (NORMAL)
[2017-09-06 20:00] VITALS: BP 167/81; PULSE 79; RESP 17; TEMP 99.7; O2SAT 94
[2017-09-06] MEDS: MIRTAZAPINE 15 MG TAB PO SCH (20:56)
[2017-09-06] MEDS: OLANZapine 10 MG TAB PO SCH (20:56)
--- NOTE | 2017-09-06 22:24 | HHI.GIFU ---
Subjective Remarks Comfortable in bed denies any pain denies any active bleeding asking to eat Objective Vitals I&O Vital Signs Date Time Temp Pulse Resp B/P (MAP) Pulse Ox O2 Delivery O2 Flow Rate FiO2 09/06/17 17:46 97 21 09/06/17 16:00 99.5 71 18 153/87 (109) 97 09/06/17 08:00 98.5 75 17 144/73 (96) 96 09/06/17 03:02 98.1 83 18 138/72 (94) 91 09/06/17 00:00 100.5 80 16 131/77 (95) 93 I/O 09/05/17 09/05/17 09/05/17 09/06/17 09/06/17 09/06/17 07:00 15:00 23:00 07:00 15:00 23:00 Intake Total 0 ml 400 ml 1000 ml 1660 ml 1000 ml 800 ml Output Total 150 ml 2 ml Balance -150 ml 400 ml 998 ml 1660 ml 1000 ml 800 ml Intake Oral 0 ml 0 ml 240 ml 800 ml IV Total 1000 ml 1420 ml 1000 ml Other 400 ml Output Urine Total 150 ml 2 ml # Voids 1 2 # Bowel Movements 0 3 1 2 Laboratory Laboratory Tests Test 09/06/17 05:55 09/06/17 12:00 09/06/17 16:38 White Blood Count 12.4 12.3 Red Blood Count 3.33 3.51 Hemoglobin 8.9 9.5 Hematocrit 26.4 28.2 Mean Corpuscular Volume 79.4 80.5 Mean Corpuscular Hemoglobin 26.7 27.0 Mean Corpuscular Hemoglobin Concent 33.6 33.5 Red Cell Distribution Width 14.1 14.0 Platelet Count 331 359 Mean Platelet Volume 7.9 7.9 Neutrophils (%) (Auto) 63.9 64.4 Lymphocytes (%) (Auto) 23.7 24.5 Monocytes (%) (Auto) 11.0 9.1 Eosinophils (%) (Auto) 0.8 0.7 Basophils (%) (Auto) 0.6 1.3 Neutrophils # (Auto) 7.9 7.9 Lymphocytes # (Auto) 2.9 3.0 Monocytes # (Auto) 1.4 1.1 Eosinophils # (Auto) 0.1 0.1 Basophils # (Auto) 0.1 0.2 CBC Comment DIFF FINAL AUTO DIFF Differential Comment AUTO DIFF CONFIRMED Blood Urea Nitrogen 31 Creatinine 1.01 Random Glucose 92 Total Protein 5.6 Albumin 1.7 Calcium Level 7.6 Alkaline Phosphatase 63 Aspartate Amino Transf (AST/SGOT) 16 Alanine Aminotransferase (ALT/SGPT) 12 Total Bilirubin 0.4 Sodium Level 143 Potassium Level 3.4 Chloride Level 109 Carbon Dioxide Level 27.4 Anion Gap 7 Estimat Glomerular Filtration Rate 92 Urine Color YELLOW Urine Turbidity CLEAR Urine pH 7.0 Urine Specific [place] 1.012 Urine Protein TRACE Urine Glucose (UA) 150 Urine Ketones NEG Urine Occult Blood MOD Urine Nitrite NEG Urine Bilirubin NEG Urine Urobilinogen 4.0 Urine Leukocyte Esterase NEG Urine RBC 10 Urine WBC 2 Urine Squamous Epithelial Cells 1 Microscopic Urinalysis Comment CULT NOT INDICATED Platelet Estimate NORMAL Platelet Morphology Comment NORMAL Target Cells 2+ Date/Time Source Procedure Growth Status 09/06/17 16:38 Blood Peripheral Aerobic Blood Culture Pending Received 09/06/17 16:38 Blood Peripheral Anaerobic Blood Culture Pending Received Imaging Last 48 hours Impressions Chest X-Ray 09/06/17 0000 Signed Impressions: Service Date/Time: Wednesday, September 06, 2017 16:07 - CONCLUSION: No acute disease. No significant change has occurred. Kalin Morales MD Renal Ultrasound 09/05/17 0000 Signed Impressions: Service Date/Time: Tuesday, September 05, 2017 10:21 - CONCLUSION: 1. Echogenic kidneys which can be seen with medical renal disease. Dylon Jeffery MD Physical Exam HEENT: normocephalic; atraumatic; no jaundice. Throat is clear. NECK: Neck is supple, CHEST: Chest is clear to auscultation and percussion. CARDIAC: Regular rate and rhythm with no murmur gallop or rubs. ABDOMEN: Soft, nondistended, nontender; no hepatosplenomegaly; bowel sounds are present in all four quadrants. EXTREMITIES: No clubbing, cyanosis, or edema. SKIN: Normal; no rash; no jaundice. PRESTIDIGITATOR: No focal deficits; alert and oriented times three. Assessment and Plan Plan ASSESSMENT: - Upper GIB, Melena, Hemoccult positive stools large duodenal ulcer with visible vessels noted on endoscopy yesterday. Denies any history PUD. He takes Baby ASA and Naproxen 500mg po BID. He has a hx of ETOH abuse, but denies any current use. He reports that he has n/v with nonbloody emesis, epigastric, mid abdominal pain x 1 week and melanotic stool x 3-4 days. He had hemoccult positive stool on admission. H&H 12.9/38.1---> 9.8/28.6. Protonic drip. NPO. Will plan for EGD Today. - Abdominal pain with nausea and vomiting x 1 week. Burning/dull ache in epigastric/mid abdominal area. Nonbloody emesis. R/T food intake. Protonix. - Unintentional weight loss. Tender 15 pound weight loss in 1 week related to not being able to eat secondary to nausea and vomiting/abdominal pain - Anemia, acute blood loss. 9.8/28.6. Protonic gtt - Acute kidney injury, likely secondary to dehydration/acute blood loss. Creat 3.35----> 1.95. Hydration - Leukocytosis. WBC 15.3. Afebrile. - Electrolyte abnormalities with hyponatremia, hypokalemia. Improved. - Hypertension, anxiety, depression, schizophrenia, bipolar disorder, hyperlipidemia, history of CVA per attending PLAN: -Avoid NSAIDs and aspirin -Continue PPI -Advance diet -EGD in 2 months - Monitor H&H - Transfuse as necessary - CBC, BMP in a.m. - Notify GI of active bleeding -Follow-up with GI post discharge Richard Lopez MD Sep 06, 2017 22:24
[2017-09-07] VITALS: BP 131/77; PULSE 76; RESP 17; TEMP 98.3; O2SAT 94
[2017-09-07] MEDS: PANTOPRAZOLE INJ 80 MG in SODIUM CHLORIDE 0.9% INJ 100 ML IV SCH ×2 (02:10→12:41)
[2017-09-07] MEDS: SODIUM CHLOR 0.9% 1000 ML INJ 1,000 ML IV SCH (03:05)
[2017-09-07 07:11] LABS: HEMATOCRIT 26.2 % (39.0-51.0); MEAN CELL VOLUME 79.1 FL (80.0-100.0); MEAN CORPUSCULAR HEMOGLOBIN 27.6 PG (27.0-34.0); MEAN CORPUSCULAR HGB CONC 34.8 % (32.0-36.0); PLATELET COUNT 341 TH/MM3 (150-450); RED BLOOD COUNT 3.31 MIL/MM3 (4.50-5.90); REVIEW FLAG FINAL; WHITE BLOOD COUNT 14.9 TH/MM3 (4.0-11.0)
[2017-09-07 07:33] LABS: ALT (GPT) 10 U/L (12-78); ANION GAP 8 MEQ/L (5-15); AST (GOT) 11 U/L (15-37); BICARBONATE 27.9 MEQ/L (21.0-32.0); BLOOD UREA NITROGEN 9 MG/DL (7-18); CHLORIDE 106 MEQ/L (98-107); GLOMERULAR FILTRATION RATE 105 ML/MIN (>89); SODIUM (NA) 142 MEQ/L (136-145)
[2017-09-07 07:38] LABS: ALKALINE PHOSPHATASE 58 U/L (45-117); TOTAL BILIRUBIN ADULT 0.4 MG/DL (0.2-1.0)
[2017-09-07 08:00] VITALS: BP 152/90; PULSE 75; RESP 16; TEMP 99.2; O2SAT 96
[2017-09-07] MEDS: DIVALPROEX DR 500 MG TABEC PO SCH ×2 (09:08→20:48)
[2017-09-07] MEDS: ATENOLOL 25 MG TAB PO SCH (09:08)
--- NOTE | 2017-09-07 09:47 | HHI.FPPN ---
Subjective Remarks No acute events overnight. Tmax 99.7F past 24 hours. Patient reports not liking his current heart healthy diet. Only 550 cc of UOP noted. Patient denies any fevers, chills, CP, SOB, dysuria, diarrhea. (Blayne Cruz MD R2) Objective Vitals Vital Signs Date Time Temp Pulse Resp B/P (MAP) Pulse Ox O2 Delivery O2 Flow Rate FiO2 09/07/17 08:00 99.2 75 16 152/90 (110) 96 09/07/17 00:00 98.3 76 17 131/77 (95) 94 09/06/17 20:00 99.7 79 17 167/81 (109) 94 09/06/17 17:46 97 21 09/06/17 16:00 99.5 71 18 153/87 (109) 97 I/O 09/06/17 09/06/17 09/06/17 09/07/17 09/07/17 09/07/17 07:00 15:00 23:00 07:00 15:00 23:00 Intake Total 1660 ml 1000 ml 1350 ml 240 ml Output Total 550 ml Balance 1660 ml 1000 ml 1350 ml -310 ml Intake Oral 240 ml 800 ml 240 ml IV Total 1420 ml 1000 ml 550 ml Output Urine Total 550 ml # Voids 2 # Bowel Movements 1 2 (Blayne Cruz MD R2) Result Diagram: 09/07/1751909/07/17519 Objective Remarks GEN: Very thin-appearing male upright in bed in no acute distress EYES: conjunctiva normal, EOMI. ENT: Mouth and pharynx normal. NECK: thyroid midline LUNGS: CTAB, no w/r/r CARDIOVASCULAR: RRR without murmur or gallop. No significant edema. GI: soft without masses, without organomegaly - tender in the epigastrium NEURO: Alert. Cranial nerves grossly intact. No focal deficits. SKIN: color normal, no rashes noted on the extremities or abdomen. MUSC: Extremities are normal in appearance. (Blayne Cruz MD R2) A/P Assessment and Plan Patient is a 61-year-old male admitted for upper GI bleed secondary to duodenal bulb ulcer and erosive gastritis. Postop day #2 EGD with clip placement, cautery , epinephrine injection. Discharge Planning Discharge to [facility] once medically stable (Blayne Cruz MD R2) Attending Attestation Patient seen and examined. Case reviewed and discussed with the resident team. Agree with plan of care as discussed with me and documented in the resident note. Patient was seen during lunch and was attempting to eat his full diet. He states he has taken one bite and feels some pain return in the epigastric area. He feels like he is a little nauseated as well. He feels like the food got stuck somewhere. On exam his belly is soft, good bowel sounds, no distention and no sign of food being lodged. He is just two days s/p EGD with clipping of the bleeding duodenal bulb ulcer. Will change his diet to soft food and see if he can tolerate that and if so will advance diet tomorrow. Zofran prn for nausea. Correct electrolyte imbalance and dc IVF since patient is tolerating liquids at this time. If he continues to do well and can tolerate a diet tomorrow -- anticipate discharge in 1-2 days (Yoana Tran MD) Problem List: (1) GI bleed ICD Codes: K92.2 - Gastrointestinal hemorrhage, unspecified Status: Acute Plan: Upper GI bleed secondary to duodenal ulcer and erosive gastritis. History of heavy NSAID use (500 mg twice a day). Patient is postop day #2 EGD with clip placement, cautery, epinephrine injection. -Hemoglobin stable at this time, will continue to monitor -Continue IV Protonix (2) Leukocytosis ICD Codes: D72.829 - Elevated white blood cell count, unspecified Status: Acute Plan: WBC 14.9 from 12.3 yesterday Clinically appears well, afebrile Consider reactive leukocytosis vs instrumentation from recent GI procedure CXR 09/06 showing no acute disease Repeat UA on 09/06 not indicating culture Blood cultures from 09/06 no growth after one day Will continue to monitor clinically and trend WBC (3) HTN (hypertension) ICD Codes: I10 - Essential (primary) hypertension Status: Chronic Plan: Patient takes lisinopril 40 mg by mouth daily and atenolol 25 mg by mouth daily. CHARLEE on admission -Resume atenolol 25 mg by mouth for now -Will consider restarting home lisinopril if needed for adequate BP control given CHARLEE has resolved (4) Hypokalemia ICD Codes: E87.6 - Hypokalemia Status: Acute Plan: K+ 3.0 this AM, replete with 60 mEq KCL Possibly losing K if having diarrhea Continue to monitor electrolytes Will check Mg level tomorrow AM (5) Acute kidney failure ICD Codes: N17.9 - Acute kidney failure, unspecified Status: Resolved Plan: CHARLEE resolved Ct 0.90 this AM IVF discontinued given patient with positive 1L fluid balance Continue to monitor renal function and I/Os Avoid nephrotoxins (6) Severe dehydration ICD Codes: E86.0 - Dehydration Status: Resolved Plan: See above plan (7) FEN Plan: Nutrition: heart healthy diet, soft foods today Electrolytes: plan as above, continue to monitor Fluids: IVF discontinued today GI prophy: IV Protonix DVT prophy: SCDs (Blayne Cruz MD R2) Blayne Cruz MD R2 Sep 07, 2017 09:47 Yoana Tran MD Sep 07, 2017 15:49
[2017-09-07 12:00] VITALS: BP 133/84; PULSE 76; RESP 17; TEMP 97.7; O2SAT 97
[2017-09-07] MEDS ORDERED: ONDANSETRON HCL 4 MG/2 ML VIAL IV PUSH PRN (13:00)
[2017-09-07] MEDS ORDERED: POTASSIUM CHLORIDE 10 MEQ CONTROLLED RELEASE TAB PO ONE (13:30)
[2017-09-07 16:00] VITALS: BP 167/96; PULSE 79; RESP 16; TEMP 100.4; O2SAT 100
--- NOTE | 2017-09-07 16:27 | HHI.GIFU ---
Subjective Remarks Tolerated clears yesterday, but vomited after trying a hamburger and salad today. No hematemesis. C/O bloating and requesting medication for this. No melena. + BM (Jesika De León) Objective Vitals I&O Vital Signs Date Time Temp Pulse Resp B/P (MAP) Pulse Ox O2 Delivery O2 Flow Rate FiO2 09/07/17 12:00 97.7 76 17 133/84 (100) 97 09/07/17 08:00 99.2 75 16 152/90 (110) 96 09/07/17 00:00 98.3 76 17 131/77 (95) 94 09/06/17 20:00 99.7 79 17 167/81 (109) 94 09/06/17 17:46 97 21 I/O 09/06/17 09/06/17 09/06/17 09/07/17 09/07/17 09/07/17 07:00 15:00 23:00 07:00 15:00 23:00 Intake Total 1660 ml 1000 ml 1350 ml 240 ml 489 ml Output Total 550 ml Balance 1660 ml 1000 ml 1350 ml -310 ml 489 ml Intake Oral 240 ml 800 ml 240 ml IV Total 1420 ml 1000 ml 550 ml 489 ml Output Urine Total 550 ml # Voids 2 # Bowel Movements 1 2 Laboratory Laboratory Tests Test 09/06/17 16:38 09/07/17 05:20 White Blood Count 12.3 14.9 Red Blood Count 3.51 3.31 Hemoglobin 9.5 9.1 Hematocrit 28.2 26.2 Mean Corpuscular Volume 80.5 79.1 Mean Corpuscular Hemoglobin 27.0 27.6 Mean Corpuscular Hemoglobin Concent 33.5 34.8 Red Cell Distribution Width 14.0 14.0 Platelet Count 359 341 Mean Platelet Volume 7.9 8.1 Neutrophils (%) (Auto) 64.4 Lymphocytes (%) (Auto) 24.5 Monocytes (%) (Auto) 9.1 Eosinophils (%) (Auto) 0.7 Basophils (%) (Auto) 1.3 Neutrophils # (Auto) 7.9 Lymphocytes # (Auto) 3.0 Monocytes # (Auto) 1.1 Eosinophils # (Auto) 0.1 Basophils # (Auto) 0.2 CBC Comment AUTO DIFF Differential Comment AUTO DIFF CONFIRMED Platelet Estimate NORMAL Platelet Morphology Comment NORMAL Target Cells 2+ Blood Urea Nitrogen 9 Creatinine 0.90 Random Glucose 101 Total Protein 5.9 Albumin 1.7 Calcium Level 8.0 Alkaline Phosphatase 58 Aspartate Amino Transf (AST/SGOT) 11 Alanine Aminotransferase (ALT/SGPT) 10 Total Bilirubin 0.4 Sodium Level 142 Potassium Level 3.0 Chloride Level 106 Carbon Dioxide Level 27.9 Anion Gap 8 Estimat Glomerular Filtration Rate 105 Date/Time Source Procedure Growth Status 09/06/17 16:38 Blood Peripheral Aerobic Blood Culture - Preliminary NO GROWTH IN 1 DAY Resulted 09/06/17 16:38 Blood Peripheral Anaerobic Blood Culture - Preliminary NO GROWTH IN 1 DAY Resulted Imaging Last Impressions Chest X-Ray 09/06/17 0000 Signed Impressions: Service Date/Time: Wednesday, September 06, 2017 16:07 - CONCLUSION: No acute disease. No significant change has occurred. Kalin Morales MD Renal Ultrasound 09/05/17 0000 Signed Impressions: Service Date/Time: Tuesday, September 05, 2017 10:21 - CONCLUSION: 1. Echogenic kidneys which can be seen with medical renal disease. Dylon Jeffery MD Physical Exam HEENT: Normocephalic; atraumatic; no jaundice. CHEST: CTA CARDIAC: RRR ABDOMEN: Soft, nondistended,mild luq tenderness; no hepatosplenomegaly; bowel sounds are present in all four quadrants. EXTREMITIES: No clubbing, cyanosis, or edema. SKIN: Normal; no rash; no jaundice. QUALITY CONTROL TECH: No focal deficits; alert and oriented times three. (Jesika De León [facility]) Assessment and Plan Plan ASSESSMENT: - Upper GIB, Melena, Hemoccult positive stools. Denies any history PUD. He takes Baby ASA and Naproxen 500mg po BID. He has a hx of ETOH abuse, but denies any current use. He reports that he has n/v with nonbloody emesis, epigastric, mid abdominal pain x 1 week and melanotic stool x 3-4 days. He had hemoccult positive stool on admission. S/P EGD (09/05/17)----> Erosive gastritis. Duodenal bulb ulcer. Protonix gtt. Tolerated clears yesterday. Vomited after attempting hamburger and salad. D/W patient soft, bland diet tonight. Change protonix to BID dosing. HH stable at 9.1/26.7. - Abdominal pain with nausea and vomiting x 1 week. Burning/dull ache in epigastric/mid abdominal area. Nonbloody emesis. R/T food intake. Protonix. - Unintentional weight loss. Tender 15 pound weight loss in 1 week related to not being able to eat secondary to nausea and vomiting/abdominal pain - Anemia, acute blood loss. 9.1/.7. Protonic gtt - Acute kidney injury, likely secondary to dehydration/acute blood loss.Improved with hydration - Leukocytosis. WBC 14.9. Low grade temp - Electrolyte abnormalities with hyponatremia, hypokalemia. Improved. - Hypertension, anxiety, depression, schizophrenia, bipolar disorder, hyperlipidemia, history of CVA per attending PLAN: - Soft diet - D/C Protonix Gtt - Protonix 40mg po BID - Trial of Simethicone prn - Monitor H&H - Transfuse as necessary - Avoid NSAIDs and aspirin - Will need repeat EGD in 2 months - Notify GI of active bleeding - Follow-up with GI post discharge - Pt seen and examined by Dr. Lopez and myself and this note is written on his behalf (Jesika De León) Physician Comments Patient seen and examined Agree with above Continue with current supportive care Monitor labs Not much to add from a GI perspective at this point in time, therefore we shall sign off (Richard Lopez MD) Jesika De León Sep 07, 2017 16:27 Richard Lopez MD Sep 07, 2017 22:58
[2017-09-07] MEDS ORDERED: SIMETHICONE 80 MG CHEWABLE TAB CHEW PRN (16:30)
[2017-09-07 17:53] VITALS: O2SAT 99
[2017-09-07 20:00] VITALS: BP 148/68; PULSE 79; RESP 20; TEMP 98.6; O2SAT 95
[2017-09-07] MEDS ORDERED: POTASSIUM CHLORIDE 25 MEQ EFFERVESCENT TAB PO ONE (20:00)
[2017-09-07] MEDS: MIRTAZAPINE 15 MG TAB PO SCH (20:48)
[2017-09-07] MEDS: PANTOPRAZOLE SOD 40 MG DELAYED RELEASE TAB PO SCH (20:48)
[2017-09-07] MEDS: OLANZapine 10 MG TAB PO SCH (20:48)
[2017-09-07] MEDS ORDERED: POTASSIUM CHLORIDE 20 MEQ CONTROLLED RELEASE TAB PO ONE (21:30)
[2017-09-08] VITALS: BP 168/98; PULSE 78; RESP 20; TEMP 97.6; O2SAT 98
[2017-09-08] MEDS ORDERED: cloNIDine HCL 0.1 MG TAB PO PRN (00:30)
[2017-09-08 04:00] VITALS: BP 148/82; PULSE 76; RESP 17; TEMP 97; O2SAT 98
[2017-09-08 07:01] LABS: AUTOMATED NEUTROPHIL # 10.2 TH/MM3 (1.8-7.7); BASOPHIL # 0.1 TH/MM3 (0-0.2); BASOPHIL % 0.5 % (0.0-2.0); EOSINOPHIL # 0.1 TH/MM3 (0-0.4); EOSINOPHIL % 0.6 % (0.0-4.0); HEMATOCRIT 28.1 % (39.0-51.0); HEMO FLAGS DIFF FINAL; LYMPHOCYTE # 2.8 TH/MM3 (1.0-4.8); MEAN CELL VOLUME 79.9 FL (80.0-100.0); MEAN CORPUSCULAR HEMOGLOBIN 27.4 PG (27.0-34.0); MEAN CORPUSCULAR HGB CONC 34.3 % (32.0-36.0); MONO % 11.4 % (0.0-8.0); NEUT % 68.5 % (16.0-70.0); PLATELET COUNT 389 TH/MM3 (150-450); RED BLOOD COUNT 3.52 MIL/MM3 (4.50-5.90); RED CELL DISTRIBUTION WIDTH 14.1 % (11.6-17.2); WHITE BLOOD COUNT 14.9 TH/MM3 (4.0-11.0)
[2017-09-08 07:22] LABS: ANION GAP 6 MEQ/L (5-15); BICARBONATE 26.3 MEQ/L (21.0-32.0); BLOOD UREA NITROGEN 5 MG/DL (7-18); CHLORIDE 110 MEQ/L (98-107); GLOMERULAR FILTRATION RATE 110 ML/MIN (>89); MAGNESIUM 1.7 MG/DL (1.5-2.5); POTASSIUM 4.4 MEQ/L (3.5-5.1); SODIUM (NA) 142 MEQ/L (136-145)
[2017-09-08 07:30] VITALS: BP 163/91; PULSE 73; RESP 14; TEMP 99.2; O2SAT 98
[2017-09-08] MEDS ORDERED: POTASSIUM CHLORIDE 20 MEQ CONTROLLED RELEASE TAB PO ONE (09:00)
--- NOTE | 2017-09-08 09:29 | RADRPT ---
EXAM DATE/TIME: 09/08/2017 09:07 [place] COMPARISON: CHEST SINGLE AP, September 06, 2017, 16:07. INDICATIONS : Fever. Wet cough. Congestion. MEDICAL HISTORY : Hypercholesterolemia. Carcinoma, prostatic. Hypertension. SURGICAL HISTORY : None. ENCOUNTER: Initial ACUITY: 2 days PAIN SCORE: 0/10 LOCATION: Bilateral chest FINDINGS: PA and lateral views of the chest demonstrate the lungs to be symmetrically aerated without evidence of mass, infiltrate. There is mild blunting of the right chest right ankle which could be pleural thi ckening versus small effusion. Stable chronic interstitial changes. The cardiomediastinal contours a re unremarkable and stable. Osseous structures are intact and stable. Otherwise, no significant shoemaker ges. CONCLUSION: 1. Blunting of right costophrenic angle suggestive of pleural thickening versus small effusion. 2. No acute pulmonary infiltrates compared to the prior study. Kalin Morales MD on September 08, 2017 at 9:26 Board Certified Radiologist. This report was verified electronically.
--- NOTE | 2017-09-08 09:50 | HHI.FPPN ---
Subjective Remarks Afebrile overnight. BP range in last 24 hours 140s-160s/82. Vomited potassium tablets and food x1. Denies nausea or vomiting since then. Denies abdominal pain , fevers/chills, shortness of breath, diarrhea. Continues to endorse black tarry stools. States that he has an appetite. (Bettye Garcia MD R1) Objective Vitals Vital Signs Date Time Temp Pulse Resp B/P (MAP) Pulse Ox O2 Delivery O2 Flow Rate FiO2 09/08/17 07:30 99.2 73 14 163/91 (115) 98 09/08/17 04:00 97.0 76 17 148/82 (104) 98 09/08/17 00:00 97.6 78 20 168/98 (121) 98 09/07/17 20:00 98.6 79 20 148/68 (94) 95 09/07/17 17:53 99 21 09/07/17 16:00 100.4 79 16 167/96 (119) 100 09/07/17 12:00 97.7 76 17 133/84 (100) 97 I/O 09/07/17 09/07/17 09/07/17 09/08/17 09/08/17 09/08/17 07:00 15:00 23:00 07:00 15:00 23:00 Intake Total 240 ml 489 ml 523.8 ml 240 ml Output Total 550 ml 700 ml 1200 ml Balance -310 ml 489 ml -176.2 ml -960 ml Intake Oral 240 ml 480 ml 240 ml IV Total 489 ml 43.8 ml Output Urine Total 550 ml 700 ml 1200 ml # Bowel Movements 0 (Bettye Garcia MD R1) Result Diagram: 09/08/1760409/08/17604 Objective Remarks GEN: Very thin-appearing male upright in bed in no acute distress EYES: conjunctiva normal, EOMI. ENT: Mouth and pharynx normal. NECK: thyroid midline LUNGS: Slightly diminished airflow in the lungs,which seems chronic. New crackles heard on mid left lung. CARDIOVASCULAR: RRR without murmur or gallop. No significant edema. GI: soft without masses, without organomegaly nontender in the epigastrium NEURO: Alert. . No focal deficits. SKIN: color normal, no rashes noted on the extremities or abdomen. MUSC: Extremities are normal in appearance. (eBttye Garcia MD R1) A/P Assessment and Plan Patient is a 61-year-old male admitted for upper GI bleed secondary to duodenal bulb ulcer and erosive gastritis. Postop day #3 EGD with clip placement, cautery , epinephrine injection. Discharge Planning Discharge to [facility] once medically stable (Bettye Garcia MD R1) Attending Attestation Patient seen and examined. Case reviewed and discussed with the resident team. Agree with plan of care as discussed with me and documented in the resident note. Patient is still having some issues with eating and has not been out of bed much and feeling week. Will get patient OOB and make sure tolerating activity and a diet prior to dc. Anticipate DC in the am if the patient continues on this clinical course. (Yoana Tran MD) Problem List: (1) GI bleed ICD Codes: K92.2 - Gastrointestinal hemorrhage, unspecified Status: Acute Plan: Upper GI bleed secondary to duodenal ulcer and erosive gastritis. History of heavy NSAID use (500 mg twice a day). Patient is postop day #3 EGD with clip placement, cautery, epinephrine injection. -Hemoglobin stable at this time, will continue to monitor daily CBCs -Converted to by mouth Protonix 40 mg twice a day -Patient continues to endorse black tarry stools. Ordered Hemoccult stool (2) Leukocytosis ICD Codes: D72.829 - Elevated white blood cell count, unspecified Status: Acute Plan: WBC table at 14.9 since yesterday -Clinically appears well, however, was febrile overnight at 100.4. Episode of vomiting 1 -Consider reactive leukocytosis vs instrumentation from recent GI procedure versus infection -CXR 09/06 showing no acute disease, reordered chest x-ray -Repeat UA on 09/06 not indicating culture -Blood cultures from 09/07 the pending, 09/06 were negative (3) HTN (hypertension) ICD Codes: I10 - Essential (primary) hypertension Status: Chronic Plan: Patient takes lisinopril 40 mg by mouth daily and atenolol 25 mg by mouth daily. CHARLEE on admission. Blood pressures 140s to 160s systolic. -Continue atenolol 25 mg by mouth for now -Start lisinopril 10 mg by mouth daily today (4) Hypokalemia ICD Codes: E87.6 - Hypokalemia Status: Acute Plan: K+ 3.0 this AM, replete with 60 mEq KCL - patient vomited this, and subsequent potassium chloride tablets. Potassium at 4.4 this a.m. Possibly losing K if having diarrhea Continue to monitor electrolytes (5) FEN Plan: Nutrition: heart healthy diet, soft foods today Electrolytes: plan as above, continue to monitor Fluids: none GI prophy: PO Protonix DVT prophy: SCDs (Bettye Garcia MD R1) Bettye Garcia MD R1 Sep 08, 2017 09:50 Yoana Tran MD Sep 08, 2017 17:21
[2017-09-08] MEDS: DIVALPROEX DR 500 MG TABEC PO SCH ×2 (11:31→20:19)
[2017-09-08] MEDS: PANTOPRAZOLE SOD 40 MG DELAYED RELEASE TAB PO SCH ×2 (11:32→20:19)
[2017-09-08] MEDS: ATENOLOL 25 MG TAB PO SCH (11:34)
[2017-09-08] MEDS: LISINOPRIL 10 MG TAB PO SCH (11:35)
[2017-09-08 12:00] VITALS: BP 157/84; PULSE 77; RESP 18; TEMP 99.1; O2SAT 98
[2017-09-08 16:00] VITALS: BP 152/83; PULSE 75; RESP 19; TEMP 99.7; O2SAT 98
[2017-09-08] MEDS: MIRTAZAPINE 15 MG TAB PO SCH (20:18)
[2017-09-08] MEDS: OLANZapine 10 MG TAB PO SCH (20:19)
[2017-09-08 20:33] VITALS: BP 144/85; PULSE 80; RESP 17; TEMP 98.3; O2SAT 97
[2017-09-08 22:37] LABS: HEMOGLOBIN A1a 0.5 %; HEMOGLOBIN A1b 0.6 %; HEMOGLOBIN P3 2.2 %
[2017-09-08 22:47] LABS: HEMOGLOBIN Ao 51.2 %; HEMOGLOBIN F 0.6 %
[2017-09-09 00:14] VITALS: BP 134/84; PULSE 82; RESP 16; TEMP 99.3; O2SAT 96
[2017-09-09 07:10] VITALS: BP 134/80; PULSE 74; RESP 14; TEMP 99.6; O2SAT 97
[2017-09-09 09:15] VITALS: TEMP 98.3
[2017-09-09] MEDS: LISINOPRIL 10 MG TAB PO SCH (11:10)
[2017-09-09] MEDS: PANTOPRAZOLE SOD 40 MG DELAYED RELEASE TAB PO SCH (11:11)
[2017-09-09] MEDS: ATENOLOL 25 MG TAB PO SCH (11:12)
[2017-09-09] MEDS: DIVALPROEX DR 500 MG TABEC PO SCH (11:13)
[2017-09-09 11:30] VITALS: BP 170/78; PULSE 72; RESP 18; TEMP 98.7; O2SAT 99
--- NOTE | 2017-09-09 12:13 | HHI.DCPOC ---
Discharge Care Plan Diagnosis: (1) GI bleed (2) Hyponatremia Goals to Promote Your Health * To prevent worsening of your condition and complications, continue to follow with your primary care physician and psychiatrist. Directions to Meet Your Goals Take your medications as prescribed Follow your dietary instruction Follow activity as directed Keep your appointments as scheduled Take your immunizations and boosters as scheduled If your symptoms worsen call your PCP, if no PCP go to Urgent Care Center or Emergency Room Smoking is Dangerous to Your Health. Avoid second hand smoke Call the 24-hour hour crisis hotline for domestic abuse at Blayne Cruz MD R2 Sep 09, 2017 12:13
[2017-09-09] MEDS ORDERED: LISI10TA3 PO (12:22)
[2017-09-09] MEDS ORDERED: Simethicone Chew CHEW (12:22)
[2017-09-09] MEDS ORDERED: PANT40TA3 PO (12:22)
[2017-09-09] MEDS ORDERED: ATEN25TA PO (12:22)
--- NOTE | 2017-09-09 16:44 | HHI.FPPN ---
Subjective Remarks Patient doing well today. Denies nausea/vomiting, abdominal pain, fevers/chills , SOB. Denies tarry stools. (Bettye Garcia MD R1) Objective Vitals Vital Signs Date Time Temp Pulse Resp B/P (MAP) Pulse Ox O2 Delivery O2 Flow Rate FiO2 09/09/17 11:30 98.7 72 18 170/78 (108) 99 09/09/17 09:15 98.3 09/09/17 07:10 99.6 74 14 134/80 (98) 97 09/09/17 00:14 99.3 82 16 134/84 (101) 96 09/08/17 20:33 98.3 80 17 144/85 (104) 97 I/O 09/08/17 09/08/17 09/08/17 09/09/17 09/09/17 09/09/17 07:00 15:00 23:00 07:00 15:00 23:00 Intake Total 240 ml 560 ml 480 ml Output Total 1200 ml 900 ml 900 ml Balance -960 ml -340 ml -420 ml Intake Oral 240 ml 560 ml 480 ml Output Urine Total 1200 ml 900 ml 900 ml # Bowel Movements 0 1 (Bettye Garcia MD R1) Result Diagram: 09/08/17 0609/08/17604 Objective Remarks GEN: Very thin-appearing male upright in bed in no acute distress EYES: conjunctiva normal, EOMI. ENT: Mouth and pharynx normal. NECK: thyroid midline LUNGS: Slightly diminished airflow in the lungs,which seems chronic. CARDIOVASCULAR: RRR without murmur or gallop. No significant edema. GI: soft without masses, without organomegaly nontender in the epigastrium NEURO: Alert. . No focal deficits. SKIN: color normal, no rashes noted on the extremities or abdomen. MUSC: Extremities are normal in appearance. (Bettye Garcia MD R1) A/P Assessment and Plan Patient is a 61-year-old male admitted for upper GI bleed secondary to duodenal bulb ulcer and erosive gastritis. Postop day #4 EGD with clip placement, cautery , epinephrine injection. Discharge Planning Discharge to [facility] once medically stable (Bettye Garcia MD R1) Attending Attestation Patient seen and examined. Case reviewed and discussed with the resident team. Agree with plan of care as discussed with me and documented in the resident note. (Yoana Tran MD) Problem List: (1) GI bleed ICD Codes: K92.2 - Gastrointestinal hemorrhage, unspecified Status: Acute Plan: Upper GI bleed secondary to duodenal ulcer and erosive gastritis. History of heavy NSAID use (500 mg twice a day). Patient is postop day #4 EGD with clip placement, cautery, epinephrine injection. -Hemoglobin stable at this time, will continue to monitor daily CBCs -Protonix 40 mg PO BID -Hemoccult negative (2) Leukocytosis ICD Codes: D72.829 - Elevated white blood cell count, unspecified Status: Acute Plan: WBC table at 14.9 yesterday -Clinically appears well, afebrile overnight and asymptomatic -CXR showing no acute disease -Repeat UA on 09/06 not indicating culture -Blood cultures from 09/07 the pending, 09/06 were negative - Advise f/u with PCP outpatient (3) HTN (hypertension) ICD Codes: I10 - Essential (primary) hypertension Status: Chronic Plan: Patient takes lisinopril 40 mg by mouth daily and atenolol 25 mg by mouth daily. Blood pressures 140s to 160s systolic. -Continue atenolol 25 mg by mouth for now - lisinopril 10 mg by mouth daily today (4) FEN Plan: Nutrition: heart healthy diet, soft foods today Electrolytes: plan as above, continue to monitor Fluids: none GI prophy: PO Protonix DVT prophy: SCDs (Bettye Garcia MD R1) Bettye Garcia MD R1 Sep 09, 2017 16:44 Yoana Tran MD Sep 11, 2017 08:59
--- NOTE | 2017-09-10 16:56 | HHI.DS ---
Discharge Summary Admission Date Sep 04, 2017 at 15:18 Discharge Date: Sep 09, 2017 Admitting Diagnosis Gi Bleed, hyponatremia, hypokalemia, acute kidney failure (1) GI bleed Plan: Upper GI bleed secondary to duodenal ulcer and erosive gastritis. History of heavy NSAID use (500 mg twice a day). Patient is postop day #4 EGD with clip placement, cautery, epinephrine injection. -Hemoglobin stable at this time, will continue to monitor daily CBCs -Protonix 40 mg PO BID -Hemoccult negative ICD Codes: K92.2 - Gastrointestinal hemorrhage, unspecified Status: Acute (2) Leukocytosis Plan: WBC table at 14.9 yesterday -Clinically appears well, afebrile overnight and asymptomatic -CXR showing no acute disease -Repeat UA on 09/06 not indicating culture -Blood cultures from 09/07 the pending, 09/06 were negative - Advise f/u with PCP outpatient ICD Codes: D72.829 - Elevated white blood cell count, unspecified Status: Acute (3) HTN (hypertension) Plan: Patient takes lisinopril 40 mg by mouth daily and atenolol 25 mg by mouth daily. Blood pressures 140s to 160s systolic. -Continue atenolol 25 mg by mouth for now - lisinopril 10 mg by mouth daily today ICD Codes: I10 - Essential (primary) hypertension Status: Chronic (4) FEN Plan: Nutrition: heart healthy diet, soft foods today Electrolytes: plan as above, continue to monitor Fluids: none GI prophy: PO Protonix DVT prophy: [facility] Gastroenterology and case management Procedures EGD 09/05 Brief History 61 y/o M w/hx of pancreatitis sent here from [facility] for melena. 1 week ago, felt he started to develop a stomach bug. Abdominal pain in periumbilical region. Vomiting food and drink, has been able to use bathroom. Hard stools 3days. Very dark. No blood. Vomited earlier today, vomit looks like food. No hemoptysis. Feeling lightheadedness, dizziness (like he is spinning), off balance. No heart palpitations. Has an appetite. 3 or 4 months ago, was hospitalized for pancreatitis. This pain feels different, only lasting 3 days. No recent travel. Last meal was a can of sardines from the [employer] store. No canned food or poorly cooked meals. Because of dizziness and weakness, decided to come to hospital. Disabled for 30 years. Lives at assisted living at [facility]. CBC/BMP: 09/08/17 0605 09/08/17 0605 Significant Findings Laboratory Tests Test 09/08/17 06:05 White Blood Count 14.9 TH/MM3 (4.0-11.0) Red Blood Count 3.52 MIL/MM3 (4.50-5.90) Hemoglobin 9.6 GM/DL (13.0-17.0) Hematocrit 28.1 % (39.0-51.0) Mean Corpuscular Volume 79.9 FL (80.0-100.0) Monocytes (%) (Auto) 11.4 % (0.0-8.0) Neutrophils # (Auto) 10.2 TH/MM3 (1.8-7.7) Monocytes # (Auto) 1.7 TH/MM3 (0-0.9) Blood Urea Nitrogen 5 MG/DL (7-18) Calcium Level 8.2 MG/DL (8.5-10.1) Chloride Level 110 MEQ/L (98-107) PE at Discharge GEN: Very thin-appearing male upright in bed in no acute distress EYES: conjunctiva normal, EOMI. ENT: Mouth and pharynx normal. NECK: thyroid midline LUNGS: Slightly diminished airflow in the lungs,which seems chronic. CARDIOVASCULAR: RRR without murmur or gallop. No significant edema. GI: soft without masses, without organomegaly nontender in the epigastrium NEURO: Alert. . No focal deficits. SKIN: color normal, no rashes noted on the extremities or abdomen. MUSC: Extremities are normal in appearance. Hospital Course On admission patient was found to be severely dehydrated and hyponatremic and hypokalemic with hypotension and CHARLEE -- his labs and vitals improved with aggressive rehydration. Because his urine output was low, bilateral renal ultrasound was performed - it showed medical renal disease. This improved with hydration. Hemoccult of the stool was positive on admission. He was also anemic and had an elevated WBC count. After initial CBC, his hemoglobin dropped from 12.9 to 9.8. His home naproxen was discontinued and he was started on protonix drip. GI was consulted. He underwent EGD on 09/05, which showed erosive gastritis and a large duodenal ulcer (it was clipped and epi was injected to stop the bleeding). His potassium levels decreased and he was given potassium supplementation. Later that night, patient became febrile with T of 100.4 on , had an episode of vomiting potassium supplements, and WBC was still elevated. Blood cultures were ordered and repeat U/A (from time of admission) was ordered. No growth occurred in cultures and U/A was negative. The next few days, patient was afebrile the next day but vomited his meal x1. His blood pressure had been elevated over the last 2 days, so he was started on lisinopril 10mg. He remained afebrile the rest of admission and his nausea resolved (with no further episodes of vomiting). His WBC count remained stable at 14.9. Because he was asymptomatic otherwise, it was deemed a reactive leukocytosis. Patient was discharged to his [facility] with orders for protonix and lisinopril and to follow up with PCP and CBC in a week. Pt Condition on Discharge: Stable Discharge Disposition: ACLF/LUIS Discharge Instructions DIET: Follow Instructions for: Heart Healthy Diet Activities you can perform: Regular-No Restrictions Follow up Referrals: PCP Follow-up - 1 Week New Orders: CBC WITH DIFF - 3-5 Days New Medications: Atenolol (Atenolol) 25 Mg Tab 25 MG PO DAILY, #28 TAB Lisinopril (Lisinopril) 10 Mg Tab 10 MG PO DAILY, #28 TAB Pantoprazole (Pantoprazole) 40 Mg Tab 40 MG PO Q12HR, #60 TAB [Simethicone Chew] () 80 MG CHEW 80 MG CHEW PCHS PRN for bloating dyspepsia for 14 Days Continued Medications: Buspirone (Buspirone) 10 Mg Tab 10 MG PO TID for Anxiety, TAB [address] (Divalproex DR) 500 Mg Tabdr 500 MG PO BID for Control Seizures, #60 TAB 0 Refills Mirtazapine (Mirtazapine) 30 Mg Tab 30 MG PO HS for Depression Control, #30 TAB 0 Refills Olanzapine (Olanzapine) 20 Mg Tab 20 MG PO HS, #30 TAB 0 Refills Discontinued Medications: Aspirin (Aspirin) 81 Mg Chew 81 MG CHEW DAILY, TAB 0 Refills Naproxen (Naproxen) 500 Mg Tab 500 MG PO BID, #60 TAB 0 Refills Bettye Garcia MD R1 Sep 10, 2017 16:56
== END 2017-09-09 15:12 | DRG 378 ==
LOC: NEPE 12:58 → NEDA 15:18 → N07A 17:58
PROVIDERS: ADMIT Family Medicine; ATTEND Family Medicine
PROC: 3E0G8GC Introduction of Other Therapeutic Substance into Upper GI, Via Natural or Artificial Opening Endoscopic (ICD-10-PCS; 2017-09-05)
PROC: 0W3P8ZZ Control Bleeding in Gastrointestinal Tract, Via Natural or Artificial Opening Endoscopic (ICD-10-PCS; principal; 2017-09-05 11:50)
DX: K26.4 Chronic or unspecified duodenal ulcer with hemorrhage (principal); N17.9 Acute kidney failure, unspecified; I95.9 Hypotension, unspecified; E87.1 Hypo-osmolality and hyponatremia; F20.9 Schizophrenia, unspecified; D62 Acute posthemorrhagic anemia; E87.6 Hypokalemia; K29.60 Other gastritis without bleeding; I10 Essential (primary) hypertension; E86.0 Dehydration; R50.9 Fever, unspecified; D72.828 Other elevated white blood cell count; F31.9 Bipolar disorder, unspecified; E78.5 Hyperlipidemia, unspecified; Z79.82 Long term (current) use of aspirin; F17.210 Nicotine dependence, cigarettes, uncomplicated; Z79.1 Long term (current) use of non-steroidal anti-inflammatories (NSAID); Z86.73 Personal history of transient ischemic attack (TIA), and cerebral infarction without residual deficits
CPT/HCPCS: 71010; 71020; 76775; 76937; 80048; 80053; 81001; 82272; 83036; 83690; 83735; 84153; 85014; 85018; 85025; 85027; 85610; 85730; 86850; 86900; 86901; 87040; 93005; 96361; 96374; C9113; J2370; J2405; J7030